=== PATIENT | male | born 1950 | race Caucasian/White ===

== ENCOUNTER 2023-05-23 12:56 | Outpatient (OUT) | payer MEDICARE, SELFPAY ==
--- NOTE | 2023-05-23 13:17 | XR_ITS ---
The [address] [address] Patient Name: BOBBY LITTLE MRN: [id number] date: 1950 Sex: M Assigned Patient Location: LAB Current Patient Location: Accession/Order Number: [id number] Exam Date: 05/23/2023 13:20 Report Date: 05/24/2023 07:35 At the request of: QUIN SOUTH Procedure: XR abdomen 1V EXAMINATION: XR abdomen 1V HISTORY: Kidney Stone N20.0 COMPARISON: No relevant comparison available. FINDINGS: KIDNEY/URETER - RIGHT: No visible renal or ureteral calcifications. KIDNEY/URETER - LEFT: No visible renal or ureteral calcifications. PELVIS: No visible ureteral calcifications. Any visible calcifications favor phleboliths. BOWEL: No abnormal dilation or deviation. BONES: No acute abnormality. OTHER: Negative. No abnormal gaseous collections. XR/XR abdomen 1V IMPRESSION: No definite urinary tract calculi Electronically authenticated by: LEONID PASCUAL Date: 05/24/2023 07:35
[2023-05-23 16:18] LABS: Prostate Specific Antigen Dx 1.85 ng/mL (<=4.00)
== END 2023-05-23 12:57 | disposition home or self-care (01) ==
LOC: LAB 13:00
PROVIDERS: PCP Internal Medicine; Visit Provider Urology
DX: N40.0 Benign prostatic hyperplasia without lower urinary tract symptoms (principal); N20.0 Calculus of kidney
CPT/HCPCS: 36415; 74018; 84153

== ENCOUNTER 2024-07-14 04:09 | Emergency (ER) | payer MEDICARE, SELFPAY ==
[2024-07-14 04:21] VITALS: BP 165/95; PULSE 99; TEMP 36.9; O2SAT 99; BMI 28.1
--- NOTE | 2024-07-14 04:40 | ED.GENADUL1 ---
HPI HPI - General Adult General Chief complaint: Fever Stated complaint: chills muscles ache Time Seen by Provider: 07/14/24 04:25 Source: patient Mode of arrival: walk-in Limitations: no limitations History of Present Illness HPI narrative: patient presents complaining of gen. weakness, chills and body aches. No fever or cough. No abdominal pain or nausea. illness started this past Related Data Allergies Allergy/AdvReac Type Severity Reaction Status Date / Time dapagliflozin [From Farxiga] Allergy Unknown Unknown Verified 07/14/24 04:21 methacholine Allergy Unknown Unknown Verified 07/14/24 04:24 [From Provocholine] Opioid HPI Opioid Management Most Recent Opioid Data: No Data to Display Review of Systems ROS Status of ROS 10 or more systems reviewed and unremarkable except as noted in history and below Exam Constitutional Vital Signs, click to edit/add: Last Vital Signs Temp 98.5 F 07/14/24 04:21 Pulse 99 H 07/14/24 04:21 Resp 18 07/14/24 04:21 BP 165/95 H 07/14/24 04:21 Pulse Ox 99 07/14/24 04:21 O2 Del Method Room Air 07/14/24 04:21 Common normals: no apparent distress, average body habitus, oriented x3, no limitations, healthy appearing and alert [facility] Common normals: normocephalic and head/scalp atraumatic Eye Common normals: PERRL and EOMs intact bilaterally Respiratory Common normals: normal respiratory effort, no retractions, no use of accessory muscles and clear to auscultation bilaterally Cardio Common normals: regular rate, regular rhythm, S1 normal heart sound and S2 normal heart sound GI Common normals: Normal to inspection, nondistended, normoactive bowel sounds present, soft to palpation and non-tender Extremity Common normals: normal to inspection and full ROM Neuro Common normals: oriented x3, CN's II-XII intact bilaterally, moves all extremities and no focal motor deficits Psych Appearance: grossly normal Course Vital Signs Vital signs: Vital Signs Temperature 98.5 F 07/14/24 04:21 Pulse Rate 99 H 07/14/24 04:21 Respiratory Rate 18 07/14/24 04:21 Blood Pressure 165/95 H 07/14/24 04:21 Pulse Oximetry 99 07/14/24 04:21 Oxygen Delivery Method Room Air 07/14/24 04:21 Temperature 98.5 F 07/14/24 04:21 Pulse Rate 99 H 07/14/24 04:21 Respiratory Rate 18 07/14/24 04:21 Blood Pressure 165/95 H 07/14/24 04:21 Pulse Oximetry 99 07/14/24 04:21 Oxygen Delivery Method Room Air 07/14/24 04:21 Medical Decision Making MDM Narrative Medical decision making narrative: patient is diabetic. presents feeling ill for past 4 days. Describes chills and body aches. No fever. Gen. sensation of weakness. No energy. Influenza and COVID 19 neg. Cxray clear. remaining labs within normal limits. Patient and informed of working diagnosis of viral illness and discharged home Lab Data Labs: Lab Results 07/14/24 07/14/24 07/14/24 Range/Units 04:25 05:10 05:18 WBC 11.8 H (4.0-11.0) 10^3/uL RBC 4.25 L (4.70-6.10) 10^6/uL Hgb 12.4 L (14.0-18.0) g/dL Hct 36.6 L (42.0-54.0) % MCV 86.1 (80.0-94.0) fL MCH 29.2 (25.9-34.0) pg MCHC 33.9 (29.9-35.2) g/dL RDW 12.9 (11.0-15.0) % Plt Count 240 (150-450) 10^3/uL MPV 10.9 (9.5-13.5) fL Neut % (Auto) 79.0 H (43.0-75.0) % Lymph % (Auto) 7.6 L (20.5-60.0) % Williams % (Auto) 12.1 H (1.7-12.0) % Eos % (Auto) 0.8 L (0.9-7.0) % Baso % (Auto) 0.2 (0.2-2.0) % Neut # (Auto) 9.3 H (1.4-6.5) 10^3/uL Lymph # (Auto) 0.9 L (1.2-3.8) 10^3/uL Williams # (Auto) 1.4 H (0.3-0.8) 10^3/uL Eos # (Auto) 0.1 (0.0-0.7) 10^3/uL Baso # (Auto) 0.0 (0.0-0.1) 10^3/uL Abs Immat Gran (auto) 0.04 H (0.00-0.03) 10^3/uL Imm/Tot Granulo (auto) 0.3 (0.0-0.5) % Sodium 133 L (136-145) mmol/L Potassium 4.0 (3.5-5.1) mmol/L Chloride 98 (98-107) mmol/L Carbon Dioxide 26.9 (21.0-32.0) mmol/L Anion Gap 12.1 BUN 11.0 (7.0-18.0) mg/dL Creatinine 1.01 (0.70-1.30) mg/dL Est GFR ( Amer) >60 (>=60) Est GFR (Non-Af Amer) >60 (>=60) BUN/Creatinine Ratio 10.9 Glucose 173 H (74-106) mg/dL Lactate 1.2 (0.4-2.0) mmol/L Calcium 8.9 (8.5-10.1) mg/dL Total Bilirubin 0.9 (0.2-1.0) mg/dL AST 24 (15-37) U/L ALT 33 (16-63) U/L Alkaline Phosphatase 83 (46-116) U/L Total Protein 7.1 (6.4-8.2) g/dL Albumin 3.1 L (3.4-5.0) g/dL Globulin 4.0 g/dL Albumin/Globulin Ratio 0.8 Urine Color Yellow (YELLOW) Urine Clarity Clear (CLEAR) Urine pH 6.0 (5.0-9.0) Ur Specific [place] 1.025 (1.005-1.025) Urine Protein 30 A (NEG/TRACE) mg/dL Urine Glucose (UA) Negative (NEGATIVE) mg/dL Urine Ketones Trace A (NEGATIVE) mg/dL Urine Occult Blood Negative (NEGATIVE) Urine Nitrite Negative (NEGATIVE) Urine Bilirubin Negative (NEGATIVE) Urine Urobilinogen 1.0 (0.2-1.0) EU/dL Ur Leukocyte Esterase Negative (NEGATIVE) Urine RBC 0-2 (0-2) #/HPF Urine WBC 0-2 A (NONE SEEN) #/HPF Ur Squamous Epith Cells Rare (NONE/RARE) #/LPF Urine Crystals None seen (None Seen) #/HPF Urine Bacteria None seen (NONE SEEN) #/HPF Urine Casts None seen (NONE SEEN) #/LPF Urine Mucus Moderate A (NONE SEEN) Ur Culture Indicated? No Influenza Type A Ag Negative Influenza Type B Ag Negative SARS-CoV-2 Ag (CV2AG) Negative (NEGATIVE) Discharge Plan Discharge Chief Complaint: Fever Clinical Impression: Viral infection Patient Disposition: Home, Self-Care Print Language: Egyptian Instructions: Viral Syndrome (ED) Additional Instructions: drink plenty of fluids and follow up with your doctor next week for recheck Referrals: SHELLIE VALLADARES DO [Primary Care Provider] - 1 week
--- NOTE | 2024-07-14 04:42 | XR_ITS ---
[address] [address] Patient Name: BOBBY LITTLE MRN: [id number] date: 1950 Sex: M Assigned Patient Location: ER Current Patient Location: ER Accession/Order Number: [id number] Exam Date: 07/14/2024 04:48 Report Date: 07/14/2024 05:27 At the request of: RINA DUBOIS Procedure: XR chest 1V EXAM: XR chest 1V HISTORY: gen. weakness COMPARISON: None. TECHNIQUE: AP upright portable chest x-ray. FINDINGS: The heart is mildly enlarged. The mediastinal contour and pulmonary vascularity are within normal limits. Aortic arch calcifications are noted. The lungs and pleural spaces appear clear. The bony thorax appears intact. XR/XR chest 1V IMPRESSION: Nonacute chest. Electronically authenticated by: DAVID BEDOYA Date: 07/14/2024 05:27
[2024-07-14 04:46] LABS: Influenza Virus A Antigen Negative; Influenza Virus B Antigen Negative; Internal Control Within Normal Limits; SARS-CoV-2 Ag NEGATIVE (NEGATIVE)
[2024-07-14 05:18] LABS: Basophils Percent Auto 0.2 % (0.2-2.0); Eosinophils Absolute Auto 0.1 10^3/uL (0.0-0.7); Eosinophils Percent Auto 0.8 % (0.9-7.0); Hematocrit 36.6 % (42.0-54.0); Hemoglobin 12.4 g/dL (14.0-18.0); Immature Granulocytes Abs Auto 0.04 10^3/uL (0.00-0.03); Immature Granulocytes Pct Auto 0.3 % (0.0-0.5); Lymphocytes Absolute Auto 0.9 10^3/uL (1.2-3.8); Lymphocytes Percent Auto 7.6 % (20.5-60.0); Mean Corpuscular HGB Conc 33.9 g/dL (29.9-35.2); Mean Corpuscular Hemoglobin 29.2 pg (25.9-34.0); Mean Corpuscular Volume 86.1 fL (80.0-94.0); Mean Platelet Volume 10.9 fL (9.5-13.5); Monocytes Absolute Auto 1.4 10^3/uL (0.3-0.8); Monocytes Percent Auto 12.1 % (1.7-12.0); Neutrophils Absolute Auto 9.3 10^3/uL (1.4-6.5); Platelet Count 240 10^3/uL (150-450); Red Blood Count 4.25 10^6/uL (4.70-6.10); Red Cell Distribution Width 12.9 % (11.0-15.0); White Blood Count 11.8 10^3/uL (4.0-11.0)
[2024-07-14 05:34] LABS: Alanine Aminotransferase 33 U/L (16-63); Albumin Globulin Ratio 0.8; Albumin Level 3.1 g/dL (3.4-5.0); Alkaline Phosphatase 83 U/L (46-116); Anion Gap 12.1; Aspartate Amino Transferase 24 U/L (15-37); BUN Creatinine Ratio 10.9; Bilirubin Total 0.9 mg/dL (0.2-1.0); Calcium 8.9 mg/dL (8.5-10.1); Carbon Dioxide 26.9 mmol/L (21.0-32.0); Chloride 98 mmol/L (98-107); Estimated GFR (African America >60 (>=60); Estimated GFR (Non-African Ame >60 (>=60); Glucose 173 mg/dL (74-106); Sodium 133 mmol/L (136-145); Total Protein 7.1 g/dL (6.4-8.2)
[2024-07-14 05:36] LABS: Lactate/Lactic Acid 1.2 mmol/L (0.4-2.0)
[2024-07-14 05:51] LABS: Bilirubin Urine NEGATIVE (NEGATIVE); Blood Urine NEGATIVE (NEGATIVE); Clarity Urine CLEAR (CLEAR); Color Urine YELLOW (YELLOW); Glucose Urine UA NEGATIVE (NEGATIVE); Ketones Urine TRACE mg/dL (NEGATIVE); Leukocyte Esterase Urine NEGATIVE (NEGATIVE); Nitrite Urine NEGATIVE (NEGATIVE); Protein Urine 30 mg/dL (NEG/TRACE); Specific Gravity Urine 1.025 (1.005-1.025)
[2024-07-14 05:56] LABS: Urine Microscopic Indicated YES
[2024-07-14 05:59] LABS: Bacteria Urine NONE SEEN #/HPF (NONE SEEN); RBC Urine 0-2 #/HPF (0-2); WBC Urine 0-2 #/HPF (NONE SEEN)
[2024-07-14 06:00] LABS: Cast Seen? NONE SEEN #/LPF (NONE SEEN); Crystals Seen? None Seen #/HPF (None Seen); Mucus Urine MODERATE (NONE SEEN); Squamous Epithelial Cell Urine RARE #/LPF (NONE/RARE); Urine Culture Indicated NO
== END 2024-07-14 06:26 | disposition home or self-care (01) ==
PROVIDERS: Emergency Provider Internal Medicine; PCP Internal Medicine
DX: B34.9 Viral infection, unspecified (principal); E11.9 Type 2 diabetes mellitus without complications; Z20.822 Contact with and (suspected) exposure to COVID-19
CPT/HCPCS: 36415; 71045; 80053; 81001; 83605; 85025; 87804; 87811; 99284

== ENCOUNTER 2024-10-25 12:41 | Outpatient (OUT) | payer MEDICARE, SELFPAY ==
--- NOTE | 2024-10-25 12:53 | CT_ITS ---
The [address] [address] Patient Name: BOBBY LITTLE MRN: [id number] date: 1950 Sex: M Assigned Patient Location: LAB Current Patient Location: Accession/Order Number: [id number] Exam Date: 10/25/2024 12:58 Report Date: 10/26/2024 06:07 At the request of: ZELALEM LAUGHLIN Procedure: CT chest high res EXAMINATION: CT chest high res HISTORY: Chronic Cough COMPARISON: No relevant comparison available. TECHNIQUE: Axial images were obtained at 10 mm intervals during inspiration and expiration in the supine and prone positions. No IV contrast given. Dose reduction techniques were achieved by using automated exposure control and/or adjustment of mA and/or kV according to patient size and/or use of iterative reconstruction technique. FINDINGS: LUNGS: A couple tiny granulomas. No air trapping, significant chronic interstitial changes, emphysematous changes, or scarring. PLEURA: No mass, effusion, or pneumothorax. NAIMA: No mass or adenopathy. MEDIASTINUM: No mass or adenopathy. HEART: No significant enlargement or pericardial effusion.. Coronary arteries: Heavy AORTA: No aneurysm.. CHEST WALL: No mass or axillary adenopathy LIMITED ABDOMEN: Chronic right hepatic lobe cyst and left renal cyst favoring benign etiology. Limited images of the upper abdomen. OTHER: Negative. CT/CT chest high res IMPRESSION: 1. No acute infiltrates or significant chronic interstitial changes to account for patient's symptoms. 2. Marked atherosclerotic coronary artery disease. Electronically authenticated by: TARIQ REYES Date: 10/26/2024 06:07
[2024-10-25 12:55] LABS: Basophils Percent Auto 0.4 % (0.2-2.0); Eosinophils Absolute Auto 0.6 10^3/uL (0.0-0.7); Eosinophils Percent Auto 8.2 % (0.9-7.0); Hematocrit 34.6 % (42.0-54.0); Hemoglobin 10.7 g/dL (14.0-18.0); Immature Granulocytes Abs Auto 0.01 10^3/uL (0.00-0.03); Immature Granulocytes Pct Auto 0.1 % (0.0-0.5); Lymphocytes Absolute Auto 1.8 10^3/uL (1.2-3.8); Lymphocytes Percent Auto 25.2 % (20.5-60.0); Mean Corpuscular HGB Conc 30.9 g/dL (29.9-35.2); Mean Corpuscular Hemoglobin 27.2 pg (25.9-34.0); Mean Corpuscular Volume 87.8 fL (80.0-94.0); Mean Platelet Volume 10.1 fL (9.5-13.5); Monocytes Absolute Auto 0.6 10^3/uL (0.3-0.8); Monocytes Percent Auto 8.7 % (1.7-12.0); Neutrophils Absolute Auto 4.1 10^3/uL (1.4-6.5); Neutrophils Percent Auto 57.4 % (43.0-75.0); Platelet Count 295 10^3/uL (150-450); Red Blood Count 3.94 10^6/uL (4.70-6.10); Red Cell Distribution Width 15.9 % (11.0-15.0); White Blood Count 7.1 10^3/uL (4.0-11.0)
--- OUTSIDE RECORDS SUMMARY | 2024-10-25 12:56 | XMS_ITS | CCD ---
Author Organization [facility] Care Team Providers Care Qm Nurse Name Role Phone NATAN HARTMAN Unavailable NATAN Anna Unavailable UnavailNATAN Farley. Unavailable Unavailable JACQUELYN, DR HENSLEY Primary Care Unavailable BRANNON, DR CHUCHO Goode Consulting Unavailable BRANNON, DR CHUCHO Goode Attending Unavailable BRANNON, DR CHUCHO Goode Admitting Unavailable NATAN VALLADARES JR Primary Care Physician [phone] Natan Valladares DO Primary Care Provider Natan Ho MD Unavailable Chucho SOUTH Attending Unavailable Chucho SOUTH Attending Unavailable Chucho SOUTH Attending Unavailable KENNY ONEIL Attending Unavailable KENNY ONEIL Referring Unavailable TARIQ MCCRACKEN Attending Unavailable CHUCHO SOUTH Referring Unavailable KENNY ONEIL Attending Unavailable KENNY ONEIL Referring Unavailable NATAN HO Attending Unavail able NATAN VALLADARES Primary Care Unavailable Allergies Allergy Classification Reported Allergen(s) Allergy Type Date of Onset Reaction(s) Facility (1 source) Pravastatin Drug Allergy 4 [facility] Repository (6 sources) Pravastatin; Translations: [pravastatin] Drug Allergy 4 Unknown [facility] (2 sources) beta-Blocking agent; Translations: [BETA-BLOCKERS (BETA-ADRENERGI C BLOCKING AGTS)] Propensity to adverse reactions 4 Unknown [facility] (2 sources) dapagliflozin; Translations: [DAPAGLIFLOZIN PROPANEDIOL] Drug Allergy 4 Other [facility] (2 sources) dapagliflozin; Translations: [dapagliflozin] Drug Allergy Eruption of skin (disorder) [facility] Medications Current Medications Medication Drug Class(es) Dates Sig (Normalized) Sig (Original) aspirin 81 mg delayed release oral tablet (4 sources) Platelet Aggregation Inhibitor, Nonsteroidal Anti-inflammatory Drug Start: 02-17-2022 take 1 tablet by mouth once daily aspirin 81 mg EC tablet Take 1 tablet (81 mg) by mouth once daily. 02/17/2022 Active Start: 08-28-2014 take 81 mg by mouth once daily aspirin 81 mg, Oral, Daily, Prophylaxis Start Date: 08/28/14 Status: Ordered atorvastatin 20 mg oral tablet (5 sources) HMG-CoA Reductase Inhibitor Start: 08-28-2014 take 20 mg by mouth once daily at bedtime Lipitor 20 mg, Oral, Once a day (at bedtime), Refills(s) 0, High cholesterol Start Date: 08/28/14 Status: Ordered take 1 tablet by carla th once daily atorvastatin (Lipitor) 40 mg tablet Take 1 tablet (40 mg) by mouth once daily. Active End: 04-19-2024 take 1 tablet by mouth once daily at bedtime atorvastatin calcium (LIPITOR ORAL) Take 1 tablet by mouth once daily at bedtime. 04/19/2024 Discontinued (Med List Cleanup) Centrum Silver (3 sources) Start: 08-28-2014 Centrum Silver Oral, Daily, Prophylaxis Start Date: 08/28/14 Status: Ordered clopidogrel 75 mg oral tablet (4 sources) P2Y12 Platelet Inhibitor Start: 08-28-2014 take 75 mg by mouth once daily Plavix 75 mg, Oral, Daily Start Date: 08/28/14 Status: Ordered docosahexaenoic acid 120 mg / eicosapentaenoic acid 180 mg oral capsule (1 source) Start: 02-17-2022 fish oil concentrate (Safford-3) 120-180 mg capsule Take 2 capsules (2 g) by mouth. (1000 MG capsule) 02/17/2022 Active doxycycline monohydrate 100 mg oral tablet (1 source) Tetracycline-class Drug Start: 06-04-2024 doxycycline monohydrate 100 mg oral tablet 100 mg = 1 tab(s), Oral Start Date: 06/04/24 Status: Ordered Fish Oils (3 sources) Start: 08-28-2014 take 1200 mg by mouth twice daily Fish Oil 1,200 mg, Oral, BID, Prophylaxis Start Date: 08/28/14 Status: Ordered fluticasone propionate 0.05 mg/actuat metered dose nasal spray (1 source) Corticosteroid Start: 02-17-2022 fluticasone (Flonase Allergy Relief) 50 mcg/actuation nasal spray Administer into affected nostril(s). As directed 02/17/2022 Active Garlic preparation (4 sources) Non-Standardized Food Allergenic Extract Start: 08-28-2014 garlic 1000, Oral, qPM, Prophylaxis Start Date: 08/28/14 Status: Ordered garlic 1,000 mg capsule Take by mouth. Take as directed Active metFORMIN hydrochloride 1000 mg oral tablet (4 sources) Biguanide Start: 02-17-2022 take 1 tablet by mouth twice daily metFORMIN (Glucophage) 1,000 mg tablet Take 1 tablet (1,000 mg) by mouth 2 times a day. 02/17/2022 Active Start: 08-28-2014 take 500 mg by mouth twice jose ly metformin 500 mg, Oral, BID, Blood glucose Start Date: 08/28/14 Status: Ordered montelukast 10 mg oral tablet (4 sources) Leukotriene Receptor Antagonist Start: 08-28-2014 take 10 mg by mouth once daily in the evening Singulair 10 mg, Oral, qPM, Allergy symptoms Start Date: 08/28/14 Status: Ordered nitroglycerin 0.4 mg sublingual tablet (1 source) Nitrate Vasodilator Start: 02-17-2022 nitroglycerin (Nitrostat) 0.[address] 1 tablet (0.4 mg) under the tongue every 5 minutes if needed for chest pain. 02/17/2022 Active pioglitazone 15 mg oral tablet (3 sources) Peroxisome Proliferator Receptor alpha Agonist, Peroxisome Proliferator Receptor gamma Agonist, Thiazolidinedione Start: 05-14-2021 take 1 mg by mouth once daily Actos 15 mg Tab mg tab(s), Oral, Daily, Refills(s) 0 Start Date: 05/14/21 Status: Ordered End: 04-19-2024 take 0.5 tablet by mouth once daily pioglitazone HCl (ACTOS ORAL) Take 15 mg by mouth. TAKE 1/2 TABLET once DAILY 04/19/2024 Discontinued (Med List Cleanup) ramipril 10 mg oral capsule (3 sources) Angiotensin Converting Enzyme Inhibitor Start: 02-17-2022 End: 04-19-2024 take 1 capsule by mouth every twelve hours ramipril (Altace) 10 mg capsule Take 1 capsule (10 mg) by mouth every 12 hours. 02/17/2022 04/19/2024 Discontinued (Med List Cleanup) Start: 08-28-2014 take 10 mg by mouth twice veda y Altace 10 mg, Oral, BID, Refills(s) 0, High blood pressure Start Date: 08/28/14 Status: Ordered sacubitril 49 mg / valsartan 51 mg oral tablet (3 sources) Angiotensin 2 Receptor Melchor Start: 12-04-2023 take 1 tablet by mouth twice daily Entresto 49 mg-51 mg oral tablet tab(s), Oral, BID, Refill(s) 0 Start Date: 12/04/23 Status: Ordered take 1 tablet by mouth twice jose ly sacubitriL-valsartan (Entresto) 97-103 mg tablet Take 1 tablet by mouth 2 times a day. Active spironolactone 50 mg oral tablet (4 sources) Aldosterone Antagonist Start: 12-04-2023 take 1 tablet by mouth once daily spironolactone 50 mg Tab 50 mg = 1 tab(s), Oral, Daily, Refills(s) 0 Start Date: 12/04/23 Status: Ordered take 0.5 tablet by mouth once da raad spironolactone (Aldactone) 50 mg tablet Take 0.5 tablets (25 mg) by mouth once daily. Active vitamin b12 0.5 mg oral tablet (4 sources) Vitamin B12 Start: 02-17-2022 take 1 tablet by mouth once daily cyanocobalamin (Vitamin B-12) 500 mcg tablet Take 1 tablet (500 mcg) by mouth once daily. 02/17/2022 Active Start: 08-28-2014 Vitamin B12 50 0 microgram, Oral, Daily, Prophylaxis Start Date: 08/28/14 Status: Ordered Problems Active Problems Problem Classification Problem Date Documented Date Episodic/Chronic Calculus of urinary tract (13 sources) Calculus of kidney; Translations: [Kidney stone] Onset: 05-13-2022 Episodic Coronary atherosclerosis and other heart disease (16 sources) Coronary atherosclerosis; Translations: [Old myocardial infarction] Onset: 04-19-2024 09-05-2014 Chronic Comment on above: 1995 Coronary atherosclerosis and other heart disease (1 source) Coronary atherosclerosis and other heart disease Onset: 03-12-2018 Diabetes mellitus with complications (4 sources) Type 2 diabetes mellitus with peripheral angiopathy; Translations: [Type 2 diabetes mellitus with diabetic peripheral angiopathy without gangrene] Onset: 04-14-2023 04-19-2024 Chronic Diabetes mellitus without complication (4 sources) Diabetes mellitus; Translations: [Type 2 diabetes mellitus without complications] Onset: 05-18-2023 09-05-2014 Chronic Diabetes mellitus without complication (3 sources) Impaired glucose tolerance 08-28-2014 Episodic Diabetes mellitus without complication (1 source) Diabetes mellitus without complication Onset: 03-12-2018 Disorders of lipid metabolism (13 sources) Hypercholesterolemia; Translations: [Hyperlipidemia] Onset: 04-19-2024 05-14-2020 Chronic Essential hypertension (10 sources) Hypertensive disorder; Translations: [Essential hypertension] Onset: 05-18-2023 09-05-2014 Chronic Essential hypertension (1 source) Essential hypertension Onset: 03-12-2018 Genitourinary symptoms and ill-defined conditions (3 sources) Post-micturition incontinence 05-15-2020 Chronic Genitourinary symptoms and ill-defined conditions (3 sources) Increased frequency of urination 05-15-2020 Episodic Hyperplasia of prostate (11 sources) Benign prostatic hyperplasia without lower urinary tract symptoms; Translations: [Benign prostatic hypertrophy without outflow obstruction] Onset: 05-10-2022 Chronic Nonspecific chest pain (1 source) Chest pain; Translations: [Chest pain, unspecified] Onset: 04-19-2024 04-19-2024 Episodic Other diseases of veins and lymphatics (2 sources) Peripheral venous insufficiency; Translations: [Venous insufficiency (chronic) (peripheral)] Onset: 04-19-2024 04-19-2024 Episodic Other nutritional; endocrine; and metabolic disorders (5 sources) Body mass index 25-29 - overweight; Translations: [Overweight] Onset: 04-19-2024 05-15-2020 Episodic Other screening for suspected conditions (not mental disorders or infectious disease) (4 sources) Raised prostate specific antigen; Translations: [Elevated prostate specific antigen [PSA]] Onset: 12-04-2023 Episodic Residual codes; unclassified (3 sources) H/O: anticoagulant therapy 02-06-2020 Episodic Residual codes; unclassified (2 sources) Never smoked tobacco; Translations: [Other specified health status] Onset: 04-19-2024 04-19-2024 Episodic Unclassified (1 source) Overweight / E66.3(ICD-9) Onset: 03-12-2018 Unclassified (2 sources) Athscl heart disease of [place] [facility] / I25.119(ICD-9) Onset: 03-12-2018 Unclassified (1 source) intermediate (current) use of oral hypoglycemic drugs / Z79.84(ICD-9) Onset: 03-12-2018 Unclassified (1 source) Cardiomyopathy, unspecified / I42.9(ICD-9) Onset: 03-12-2018 Unclassified (1 source) Chest pain, unspecified / R07.9(ICD-9) Onset: 03-12-2018 Unclassified (1 source) Shortness of breath / R06.02(ICD-9) Onset: 03-12-2018 Unclassified (1 source) Coronary angioplasty status / Z98.61(ICD-9) Onset: 03-12-2018 Unclassified (1 source) buttermaker (current) use of antithrombotics/antip latelets / Z79.02(ICD-9) Onset: 03-12-2018 Unclassified (1 source) buttermaker (current) use of aspirin / Z79.82(ICD-9) Onset: 03-12-2018 Unclassified (1 source) Family hx of ischem heart dis and oth dis of the circ sys / Z82.49(ICD-9) Onset: 03-12-2018 Past or Other Problems Problem Classification Problem Date Documented Da te Episodic/Chronic Coronary atherosclerosis and other heart disease (2 sources) Coronary angioplasty status; Translations: [Coronary angioplasty status] Onset: 04-19-2024 Episodic Other diseases of veins and lymphatics (2 sources) Venous insufficiency (chronic) (peripheral); Translations: [Venous insufficiency (chronic) (peripheral)] Onset: 04-19-2024 Episodic Other nutritional; endocrine; and metabolic disorders (2 sources) Overweight; Translations: [Overweight] Onset: 04-19-2024 Episodic Residual codes; unclassified (2 sources) Other specified health status; Translations: [Other specified health status] Onset: 04-19-2024 Episodic Unclassified (1 source) Athscl heart disease of [place] [facility]; Translations: [Athscl heart disease of [place] cor art [facility] pct[facility]] Onset: 03-12-2018 Results Test Name Value Interpretation Reference Range Facil ity Ambulatory Visit Summaryon 0 06-04-2024 Ambulatory Visit Summary Ambulatory Visit Summary BOBBY LITTLE JR :1950 Visit Date:06/04/2024 Ambulatory Visit Instructions Your Diagnosis Elevated PSA Kidney stones BPH (benign prostatic hyperplasia) Your Care Team Attending Physician - Chucho SOUTH MD Primary Care Physician - NATAN VALLADARES JR, DO This Is Your Medications List Contact prescribing physician if questions or concerns Misc Prescription (Accu-Chek Softclix Lancets) aspirin atorvastatin (Lipitor) clopidogrel (Plavix) cyanocobalamin (Vitamin B12) doxycycline (doxycycline monohydrate 100 mg oral tablet) garlic metformin montelukast (Singulair) multivitamin with minerals (Centrum Silver) omega-3 polyunsaturated fatty acids (Fish Oil) sacubitril-valsartan (Entresto 49 mg-51 mg oral tablet) spironolactone (spironolactone 50 mg Tab) Procedures Performed Cystoscopy (07/20/2017), Cystoscopy (06/30/2017), cystoscopy, left ureteral stent removal, left ureteroscopy with Holmium laser ablataion, ureteroscopic stone basket extraction, left JJ stent replacement after RGP, all under fluoroscopy (09/08/2014), cystoscopy, left retrograde pyelogram, left ureteroscopy, left JJ stent placement (08/28/2014), Coronary angioplasty, Insertion of coronary artery stent. Discharge Vitals Heart Rate (Peripheral) 64 Respiratory Rate 16 Blood Pressure 128/64 Height 165 cm Height 65 in Weight 81 kg Weight 178.2 lb BMI 29.75 What to do next Scheduled Follow-Up Appointments Monday. 2024 9:30 AM EDT With: Chucho SOUTH MD Where: [facility] [address] [place] [address]- You Need to Schedule the Following Appointments Follow Up with Chucho SOUTH MD, URL When: Comments: 9 mos PSA Where: [address] [place] [id number]- Medications What How Much When Instructions Unchanged aspirin 81 Milligram By Mouth Every day Contact prescribing physician if questions or concerns Unchanged atorvastatin (Lipitor) 20 Milligram By Mouth Once a day (at bedtime) Contact prescribing physician if questions or concerns Unchanged clopidogrel (Plavix) 75 Milligram By Mouth Every day Contact prescribing physician if questions or concerns Unchanged cyanocobalamin (Vitamin B12) 500 Microgram By Mouth Every day Contact prescribing physician if questions or concerns Unchanged doxycycline (doxycycline monohydrate 100 mg oral tablet) 1 Tablets By Mouth Contact prescribing physician if questions or concerns Unchanged garlic 1000 By Mouth Once a day (in the evening) Contact prescribing physician if questions or concerns Unchanged metformin 500 Milligram By Mouth 2 times a day Contact prescribing physician if questions or concerns Unchanged Misc Prescription (Accu-Chek Softclix Lancets) 0 Contact prescribing physician if questions or concerns Unchanged montelukast (Singulair) 10 Milligram By Mouth Once a day (in the evening) Contact prescribing physician if questions or concerns Unchanged multivitamin with minerals (Centrum Silver) By Mouth Every day Contact prescribing physician if questions or concerns Unchanged omega-3 polyunsaturated fatty acids (Fish Oil) 1,200 Milligram By Mouth 2 times a day Contact prescribing physician if questions or concerns Unchanged sacubitril-valsartan (Entresto 49 mg-51 mg oral tablet) By Mouth 2 times a day Contact prescribing physician if questions or concerns Unchanged spironolactone (spironolactone 50 mg Tab) 1 Tablets By Mouth Every day Contact prescribing physician if questions or concerns Allergies Farxiga (Rash) Pravastatin Sodium Problems Ongoing - Any problem that you are currently receiving treatment for. 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 Healed myocardial infarction History of kidney stone Patient Survey You may receive a survey via text or e-mail asking about your office visit. Please share your experience with us by completing your survey. We appreciate your feedback and thank you for choosing us for your care. Education Materials Benign Prostatic Hyperplasia Benign prostatic hyperplasia (BPH) is an enlarged prostate gland that is caused by the normal aging process. The prostate may get bigger as a man gets older. The condition is not caused by cancer. The prostate is a walnut-sized gland that is involved in the production of semen. It is located in front of the rectum and below the bladder. The bladder stores urine. The urethra carries stored urine out of the body. An enlarged prostate can press on the urethra. This can (more content not included)... Normal [facility] Urology Office/Clinic Noteon 06-04-2024 Urology Office/Clinic Note Urology Office/Clinic Note Chief Complaint 6 month follow up HPI Staff 6 months w/ PSA and KUB. Dx: BPH, elevated PSA, kidney stones. PSA 05/27/24 - 1.12 (10/24/23 - 1.90) KUB done 05/27/24 at [facility]. Dysuria: denies pain or burning Incomplete bladder emptying: denies Hematuria: denies Frequency: denies Urgency: denies Nocturia: 1-2x a month Stream: denies hesitancy, denies Leaking: denies Post void dripping: denies Wearing pads/ Depends: denies Urge incontinence: denies Stress incontinence: denies Incontinence without Sensory Awareness: denies Abdominal pain: denies Flank pain: denies Sexual complaints: denies History of Present Illness Tests reviewed: reviewed UA, PSA, KUB I have reviewed the previous health record information and history for this patient from Dr. South. I have reviewed and verified the staff HPI to be accurate for this encounter. Review of Systems PHQ Score Initial Depression Screen Score: 0 SCORE ROS - Provider Constitutional: denies weight loss, denies hot flashes. Eyes: denies eye problems. Gastrointestinal: denies nausea, denies vomiting. Cardiovascular: denies chest pain or angina. Integumentary: no dryness Musculoskeletal: denies musculoskeletal symptoms. ENMT: denies otolaryngeal symptoms. Respiratory: no shortness of breath. Heme/Lymph: denies easy bleeding tendency, denies easy bruising tendency. Psychiatric: no confusion, no anxiety. Genitourinary: See HPI. Physical Exam Vitals & Measurements HR: 64(Peripheral) RR: 16 BP: 128/64 HT: 65 in HT: 165 cm WT: 81 kg WT: 178.2 lb BMI: 29.75 General Appearance: alert, no distress, well nourished, well developed male. Genitourinary: normal scrotum, normal testes, normal urethra, normal epididymis, normal vas deferens/spermatic cord. Prostate: normal prostate, estimated weight 35 gms, no hard nodule observed. Assessment/Plan Pt is accompanied by his today. 1. Elevated PSA (R97.20: Elevated prostate specific antigen [PSA]) PSA: 05/05/21 - 1.50 05/10/22 - 1.31 05/23/23 - 1.85 10/24/23 - 1.90 05/27/24 - 1.12 YUMIKO today ~35g, no nodules PSA has decreased from prior. Again educated the pt on the 5 etiologies of PSA risers but PSA is the lowest it has been since starting to see the pt. No indication for further evaluation. Will continue to monitor level. -Repeat PSA in 9 mos 2. Kidney stones (N20.0: Calculus of kidney) KUB 05/10/22 - Neg for stones. Personal review: Lots of gas, possible 2 mm R sided renal stone. KUB 05/23/23 - Neg for stones. [1] KUB 05/27/24 [facility] - no stones identified however view was obscured due to stool. Reviewed imaging results which was negative. Denies any stone passing since last encounter. 3. BPH (benign prostatic hyperplasia) (N40.0: Benign prostatic hyperplasia without lower urinary tract symptoms) IPSS 0 (2). Not currently taking any BPH meds. UA today negative for blood and infection. No urinary complaints. Patient is here with his today. They are happy to hear that the PSA has decreased significantly from 1.9 down to 1.12. Prior levels noted. This is the lowest he has been in some time. KUB is negative. Has had no stone passage. Denies gross hematuria. Urinalysis negative. Plan will be to increase the interval between visits now to 9 months with a repeat free and total PSA. Too early to recheck a KUB at that time but we will discuss it. They are in agreement with the plan. Push fluids. Portions of this record may have been created with voice recognition artificial intelligence software, specifically [employer], eflow and or [employer]. Substitutions may have occurred due to the inherent limitations of voice recognition and artificial intelligence software. Follow-up With When Contact Information Chucho SOUTH MD, URL [address] [place] [id number]- Additional Instructions: 9 mos PSA Patient Education Benign Prostatic Hyperplasia I, Asha [place], personally scribed for Dr. South on 06/04/2024 11:14:24. . Documentation recorded by the Asha champion acurately reflects the services(s) I performed and decisions made by me. Authenticated by Dr. South on 06/04/2024 11:16:08. Problem List/Past Medical History Ongoing BMI 29.0-29.9,adult BPH (benign prostatic hyperplasia) CAD (coronary artery disease) Diabetes Elevated PSA Frequent urination HTN - Hypertension Hx of usp use of blood thinners Hypercholesterolemia Hyperlipidemia Kidney stones Post-void dribbling Historical Healed myocardial infarction History of kidney stone Procedure/Surgical History Cystoscopy (07/20/2017), Cystoscopy (06/30/2017), cystoscopy, left ureteral stent removal, left ureteroscopy with Holmium laser ablataion, ureteroscopic stone basket extraction, left JJ stent replacement after RGP, all under fluo (more content not included)... Normal [facility] Comment on above: Result Comment: Elec tronically Signed By: Chucho SOUTH MD\.br\Date and Time Signed: 06/04/24 11:17 EDT\.br\Electronically Co-Signed By: Asha [place]\.br\Date and Time Co-Signed: 06/04/24 11:14 EDT XR ABDOMEN 1 VIEWon 05-27-20 24 XR ABDOMEN 1 VIEW FINDINGS: Renal shadows and the course of both ureters above the pelvic brim are obscured by moderate to large volume of stool throughout the colon. No distal ureteral or bladder stones are seen. Bowel gas pattern is otherwise unremarkable. IMPRESSION: Obscured renal shadows No ureteral or bladder stones TRANSCRIBED BY: ELECTRONICALLY SIGNED BY: Melvin Collier MD Normal Not Available [facility] 12-05-2023 Lab Reports [id number] .00TIFF [facility] Screenson 12-05-2023 Screens [id number]# 1.00TIFF [facility] Ambulatory Visit Summaryon 0 12-04-2023 Ambulatory Visit Summary BOBBY LITTLE JR :1950 Visit Date:12/04/2023 Ambulatory Visit Instructions Your Diagnosis BPH (benign prostatic hyperplasia) Elevated PSA Kidney stones Tests Performed XR Abdomen 1 View -- Results Pending -- Please visit your patient portal for your results or contact your primary care physician. Your Care Team Attending Physician - Chucho SOUTH MD Primary Care Physician - NATAN VALLADARES JR, DO This Is Your Medications List Contact prescribing physician if questions or concerns aspirin atorvastatin (Lipitor) clopidogrel (Plavix) cyanocobalamin (Vitamin B12) garlic metformin montelukast (Singulair) multivitamin with minerals (Centrum Silver) omega-3 polyunsaturated fatty acids (Fish Oil) pioglitazone (Actos 15 mg Tab) ramipril (Altace) sacubitril-valsartan (Entresto 49 mg-51 mg oral tablet) spironolactone (spironolactone 50 mg Tab) spironolactone (spironolactone 50 mg Tab) Procedures Performed Cystoscopy (07/20/2017), Cystoscopy (06/30/2017), cystoscopy, left ureteral stent removal, left ureteroscopy with Holmium laser ablataion, ureteroscopic stone basket extraction, left JJ stent replacement after RGP, all under fluoroscopy (09/08/2014), cystoscopy, left retrograde pyelogram, left ureteroscopy, left JJ stent placement (08/28/2014), Coronary angioplasty, Insertion of coronary artery stent. Discharge Vitals Blood Pressure 128/84 Height 165 cm Height 65 in Weight 85.3 kg Weight 187.66 lb BMI 31.33 What to do next Scheduled Follow-Up Appointments Monday 10:45 AM EDT With: Chucho SOUTH MD Where: [facility] Patient Educationon 12-04-19 24 Patient Education Nephrology Dietary Guidelines to Help Prevent Kidney Stones Kidney stones are deposits of minerals and salts that form inside your kidneys. Your risk of developing kidney stones may be greater depending on your diet, your lifestyle, the medicines you take, and whether you have certain medical conditions. Most people can lower their risks of developing kidney stones by following these dietary guidelines. Your dietitian may give you more specific instructions depending on your overall health and the type of kidney stones you tend to develop. What are tips for following this plan? Reading food labels ? Choose foods with no salt added or low-salt labels. Limit your salt (sodium) intake to less than 1,500 mg a day. ? Choose foods with calcium for each meal and snack. Try to eat about 300 mg of calcium at each meal. Foods that contain 200?500 mg of calcium a serving include: ? 8 oz (237 mL) of milk, calcium-fortifiednon- dairy milk, and calcium-fortifiedfrui t juice. Calcium-fortified means that calcium has been added to these drinks. ? 8 oz (237 mL) of kefir, yogurt, and soy yogurt. ? 4 oz (114 g) of tofu. ? 1 oz (28 g) of cheese. ? 1 cup (150 g) of dried figs. ? 1 cup (91 g) of cooked broccoli. ? One 3 oz (85 g) can of sardines or mackerel. Most people need 1,000?1,500 mg of calcium a day. Talk to your dietitian about how much calcium is recommended for you. Shopping ? Buy plenty of fresh fruits and vegetables. Most people do not need to avoid fruits and vegetables, even if these foods contain nutrients that may contribute to kidney stones. ? When shopping for convenience foods, choose: ? Whole pieces of fruit. ? Pre-made salads with dressing on the side. ? Low-fat fruit and yogurt smoothies. ? Avoid buying frozen meals or prepared deli foods. These can be high in sodium. ? Look for foods with live cultures, such as yogurt and kefir. ? Choose high-fiber grains, such as whole-wheat breads, oat bran, and wheat cereals. Cooking ? Do not add salt to food when cooking. Place a salt shaker on the table and allow each person to add their own salt to taste. ? Use vegetable protein, such as beans, textured vegetable protein (TVP), or tofu, instead of meat in pasta, casseroles, and soups. Meal planning ? Eat less salt, if told by your dietitian. To do this: ? Avoid eating processed or pre-made food. ? Avoid eating fast food. ? Eat less animal protein, including cheese, meat, poultry, or fish, if told by your dietitian. To do this: ? Limit the number of times you have meat, poultry, fish, or cheese each week. Eat a diet free of meat at least 2 days a week. ? Eat only one serving each day of meat, poultry, fish, or seafood. ? When you prepare animal proteins, cut pieces into small portion sizes. For most meat and fish, one serving is about the size of the palm of your hand. ? Eat at least five servings of fresh fruits and vegetables each day. To do this: ? Keep fruits and vegetables on hand for snacks. ? Eat one piece of fruit or a handful of berries with breakfast. ? Have a salad and fruit at lunch. ? Have two kinds of vegetables at dinner. ? You may be told to limit foods that are high in a substance called oxalate. These include: ? Spinach (cooked), rhubarb, beets, sweet potatoes, and [place]eg[place]e chard. ? Peanuts. ? Potato chips, tamazight fries, and baked potatoes with skin on. ? Nuts and nut products. ? Chocolate. ? If you regularly take a diuretic medicine, make sure to eat at least 1 or 2 servings of fruits or vegetables that are high in potassium each day. These include: ? Avocado. ? Banana. ? [place], prune, carrot, or tomato juice. ? Baked potato. ? Cabbage. ? Beans and split peas. Lifestyle ? Drink enough fluid to keep your urine pale yellow. This is the most important thing you can do. Spread your fluid intake throughout the day. ? If you drink alcohol: ? Limit how much you have to: ? 0?1 drink a day for women who are not . ? 0?2 drinks a day for men. ? Know how much alcohol is in your drink. In the [place] one drink equals one 12 oz bottle of beer (355 mL), one 5 oz glass of wine (148 mL), or one 1? oz glass of hard liquor (44 mL). ? Lose weight if told by your health care provider. Work with your dietitian to find an eating plan and weight loss strategies that work best for you. General information ? Talk to your health care provider and dietitian about taking daily supplements. Depending on your health and the cause of your kidney stones, you may be told: ? Do not take high-dose supplements of vitamin C (1,000 mg a day or more). ? To take a calcium supplement. ? To take a daily probiotic supplement. ? To take other supplements such as magnesium, fish oil, or vitamin B6. ? Take sqia-agx-tgnxmyq and prescription medicines only as told by your health care provider. These include supplements. What foods sh (more content not included)... Normal [facility] Urology Office/Clinic Noteon 12-04-2023 Urology Office/Clinic Note Chief Complaint F/U with PSA HPI Staff 6 month follow up w/PSA. previous PSA 1.85 05/23/23. Previous DX: BPH, frequent urination, kidney stones, post void dribbling. No urologic meds. IPSS 2 Dysuria: _denies Incomplete bladder emptying: denies Hematuria: denies visible blood Frequency: 3-4x daily Urgency: denies Nocturia: _denies Stream: a little hesitation, weaker stream Leaking: denies Post void dripping: denies Wearing pads/ Depends: denies Urge incontinence: denies Stress incontinence: denies Incontinence without Sensory Awareness: denies Abdominal pain: denies Flank pain: denies Sexual complaints: denies History of Present Illness Tests reviewed: reviewed UA and PSA. I have reviewed the previous health record information and history for this patient from . I have reviewed and verified the staff HPI to be accurate for this encounter. There have been no associated fever, chills, flank pain, or blood in the urine. Denies any urinary infections since last encounter. Review of Systems PHQ Score Initial Depression Screen Score: 0 SCORE ROS - Provider Constitutional: denies weight loss, denies hot flashes. Eyes: denies eye problems. Gastrointestinal: denies nausea, denies vomiting. Cardiovascular: denies chest pain or angina. Integumentary: no dryness Musculoskeletal: denies musculoskeletal symptoms. ENMT: denies otolaryngeal symptoms. Respiratory: no shortness of breath. Heme/Lymph: denies easy bleeding tendency, denies easy bruising tendency. Psychiatric: no confusion, no anxiety. Genitourinary: See HPI. Physical Exam Vitals & Measurements BP: 128/84 HT: 65 in HT: 165 cm WT: 85.3 kg WT: 187.66 lb BMI: 31.33 General Appearance: alert, no distress, well nourished, well developed male. Assessment/Plan 1. BPH (benign prostatic hyperplasia) (N40.0: Benign prostatic hyperplasia without lower urinary tract symptoms) UA today negative for blood and infection. Not taking any prostate meds. IPSS 2(0). No urinary complaints. YUMIKO 05/30/23: 35 gm, soft nodularity on the R. R lobe slightly higher. 2. Elevated PSA (R97.20: Elevated prostate specific antigen [PSA]) PSA: 05/05/21 - 1.50 05/10/22 - 1.31 05/23/23 - 1.85 10/24/23 - 1.90 Increased 0.1 point in 1 yr. Hx of fluctuating PSA. Discussed getting another level in 6 mos vs 1 yr to watch PSA a little more closely given recent elevation. Follow up 6 mos PSA and KUB or sooner if needed. Pt understands and agrees with plan. -Will order PSA. 3. Kidney stones (N20.0: Calculus of kidney) KUB 05/10/22 - Neg for stones. Personal review: Lots of gas, possible 2 mm R sided renal stone. KUB 05/23/23 - Neg for stones. -KUB in 6 mos. Patient is here with his today. PSA levels are as noted. Had gone up about 0.5 and remained stable at that level currently. I do not feel this justifies further evaluation with an MRI which could lead to a fusion biopsy at this point but do recommend continued close follow-up. He agrees with the plan. Will repeat both free and total PSA and KUB prior to next visit. Urinalysis reviewed and negative. They agree with the plan Follow-up With When Contact Information BRANNON DAVIS, Chucho Goode, URL In 6 months [address] [place] [phone] Additional Instructions: w/PSA and KUB Patient Education Dietary Guidelines to Help Prevent Kidney Stones I, Martha Hawkins, personally scribed for Dr. South on 12/04/2023 11:32:42. . Documentation recorded by the scribe, Martha Hawkins, accurately reflects the services(s) I performed and decisions made by me. Authenticated by Dr. South on 12/04/2023 11:56:11. Portions of this record may have been created with voice recognition artificial intelligence software, specifically [employer], eflow and or [employer]. Substitutions may have occurred due to the inherent limitations of voice recognition and artificial intelligence software. Problem List/Past Medical History Ongoing BMI 29.0-29.9,adult BPH (benign prostatic hyperplasia) CAD (coronary artery disease) Diabetes Elevated PSA Frequent urination HTN - Hypertension Hx of usp use of blood thinners Hypercholesterolemia Hyperlipidemia Kidney stones Post-void dribbling Historical Healed myocardial infarction History of kidney stone Procedure/Surgical History Cystoscopy (07/20/2017), Cystoscopy (06/30/2017), cystoscopy, left ureteral stent removal, left ureteroscopy with Holmium laser ablataion, ureteroscopic stone basket extraction, left JJ stent replacement after RGP, all under fluoroscopy (09/08/2014), cystoscopy, left retrograde pyelogram, left ureteroscopy, left JJ stent placement (08/28/2014), Coronary angioplasty, Insertion of coronary artery stent. Medications Actos 15 mg Tab, Oral, Daily, Not taking Altace, 10 mg, Oral, BID, No (more content not included)... Normal [facility] Comment on above: Result Comment: Elec tronically Signed By: Chucho SOUTH MD\.br\Date and Time Signed: 12/04/23 11:56 EST\.br\Electronically Co-Signed By: Martha Hawkins\.br\Date and Time Co-Signed: 12/04/23 11:32 EST XR Abdomen Single View (KUB) *on 05-10-2022 XR Abdomen Single View (KUB)* FINDINGS: Moderate volume of air and stool throughout the abdomen and pelvis obscures both renal shadows and course of the ureters. No biliary or urinary tract stones. 2mm calcification neighbors the right L1 transverse process unlikely within the urinary tract. No evidence of bowel obstruction or free air. Unremarkable lung bases. IMPRESSION: 1. Moderate volume of stool, no obstruction. 2. Obscured renal shadows. Report reported and signed by Melvin Collier on 05/10/2022 1025 Normal [facility] Office Visit (Cardiology)on 04-15-2022 Follow-up visit Diagnoses/Problems Assessed CAD S/P percutaneous coronary angioplasty (414.01,V45.82) (I25.10,Z98.61) Diabetes mellitus (250.00) (E11.9) Mixed hyperlipidemia (272.2) (E78.2) Overweight with body mass index (BMI) of 28 to 28.9 in adult (278.02,V85.24) (E66.3,Z68.28) Orders Overweight with body mass index (BMI) of 28 to 28.9 in adult Healthy Weight Tips; Status:Complete - Retrospective Authorization; Done: 15Apr2022 Losing just 5 to 10 pounds may lower your risk of health problems.; Status:Complete - Retrospective Authorization; Done: 15Apr2022 Patient Instructions By signing my name below, I, Daily Jhaveri LPN,Scribe, attest that this documentation has been prepared under the direction and in the presence of Dr. Natan Ho MD, [facility]. Continue same medications/treatment . Patient educated on proper medication use. Patient educated on risk factor modification. Please bring any lab results from other providers/physicians to your next appointment. Please bring all medicines, vitamins, and herbal supplements with you when you come to the office. Prescriptions will not be filled unless you are compliant with your follow up appointments or have a follow up appointment scheduled as per instruction of your physician. Refills should be requested at the time of your visit. Follow up in 1 year Chief Complaint Patient here for 1 year follow-up. History of Present Illness The patient states she has been doing well from a cardiac standpoint. He denies chest discomfort or symptoms of myocardial ischemia. He has not taken nitroglycerin. He denies any significant dyspnea with exertion. He denies palpitations and syncope. He is not having any problem with his medications. Lab data: Hemoglobin 13.9, cholesterol 121, triglycerides 97, HDL 41 GFR 92, hemoglobin A1c 6.8, done 01/13/2022, results discussed with patient LDL 62 IMPRESSION: 1. Coronary artery disease, no angina. 2. Multivessel PCI, most recently drug-eluting stents of left anterior descending coronary and right coronary artery, March 12, 2018. 3. Mixed hyperlipidemia. 4. Diabetes mellitus type 2. 5. Overweight. Please excuse any errors in grammar or translation related to this dictation. Voice recognition software was utilized to prepare this document. Active Problems Problems CAD S/P percutaneous coronary angioplasty (414.01,V45.82) (I25.10,Z98.61) Chest pain (786.50) (R07.9) Diabetes mellitus (250.00) (E11.9) History of angina, class III (V12.59) (Z86.79) Mixed hyperlipidemia (272.2) (E78.2) Shortness of breath (786.05) (R06.02) Surgical History Problems History of Cardiac catheterization History of Colonoscopy 06Nov2010 Dr Natan Valladares History of Cyst excision History of Percutaneous transluminal coronary angioplasty History of Renal lithotripsy Current Meds Medication NameInstruction Actos 15 MG Oral TabletTAKE 1/2 TABLET once DAILY. Altace 10 MG Oral CapsuleTAKE 1 CAPSULE EVERY 12 HOURS DAILY. Aspirin 81 MG Oral Tablet Delayed ReleaseTAKE 1 TABLET DAILY. Centrum Silver Oral TabletTAKE 1 TABLET DAILY. Clopidogrel Bisulfate 75 MG Oral TabletTAKE 1 TABLET DAILY. Fish Oil 1000 MG Oral CapsuleTake 2 capsules twice daily Flonase Allergy Relief 50 MCG/ACT Nasal Suspensionas directed Garlic 1000 MG Oral CapsuleTAKE DIRECTED. Lipitor 20 MG Oral TabletTAKE 1 TABLET AT BEDTIME. metFORMIN HCl - 1000 MG Oral TabletTAKE 1 TABLET TWICE DAILY. Nitroglycerin 0.4 MG Sublingual Tablet SublingualTAKE DIRECTED FOR CHEST PAIN/DISCOMFORT Singulair 10 MG Oral TabletTAKE 1 TABLET DAILY DIRECTED. Vitamin B-12 500 MCG Oral TabletTAKE 1 TABLET DAILY. Allergies Medication Beta Adrenergic Blockers Bradycardia;; Recorded By: Ester Arambula; 02/14/2022 9:47:52 PM pravastatin Recorded By: Ester Arambula; 02/14/2022 9:47:52 PM Family History Mother Family history of acute myocardial infarction (V17.3) (Z82.49) Family history of coronary artery disease (V17.3) (Z82.49) Father Family history of cardiac pacemaker (V17.49) (Z82.49) Brother Family history of cardiac pacemaker (V17.49) (Z82.49) Social History Problems Never a smoker No alcohol use No illicit drug use Occasional caffeine consumption 1 can a month Review of Systems Constitutional: not feeling tired. Cardiovascular: no intermittent leg claudication and as noted in HPI. Respiratory: no cough, no shortness of breath and as noted in HPI. Gastrointestinal: no change in bowel habits and no blood in stools. Integumentary: no skin rashes. Neurological: no seizures and no frequent falls. All other systems have been reviewed and are negative for complaint. Vitals Vital Signs Recorded: 15Apr2022 09:22AM Heart Rate60, L Radial Xckmgtlq455, LUE, Sitting Oianaaibk38, LUE, Sitting Height5 ft 5 in Ebxnho226 lb 8.0 oz BMI Pwhzhtrlmb24.87 kg/m2 BSA Calculated1.86 Tobacco Useb) No PHQ-2 #1. Over the last 2 weeks have (more content not included)... Normal [employer] Basic Metabolic Panelon 05-0 Anion gap 9 mmol/L Low 10-[address] [facility] Healthcare Comment on above: Performed By: #### 1 [id number] ####[facility] [address] [place] [address] Bicarbonate (HCO3) 28 mmol/L Normal 21-32 [facility] Comment on above: Performed By: #### 1 [id number] ####[facility] [address] [place] [address] BUN/Creatinine Ratio 14 mg/mg Normal 5-25 [facility] Comment on above: Performed By: #### 1 [id number] ####[facility] [address] [place] [address] Calcium 9.2 mg/dL Normal 8.6-10.3 [facility] Comment on above: Performed By: #### 1 [id number] ####[facility] [address] [place] [address] Chloride 106 mmol/L Normal 98-[address] [facility] Healthcare Comment on above: Performed By: #### 1 [id number] ####[facility] [address] [place] [address] Creatinine 0.93 mg/dL Normal 0.50-1.30 [facility] Comment on above: Performed By: #### 1 [id number] ####[facility] [address] [place] [address] eGFR (MDRD) mL/min/{1.73_m2} Normal [facility] Comment on above: Result Comment: Inte rpretation for Chronic Kidney Disease:Stages 1&2 >60 Healthy or potential kidney damage.Mild decrease of GFR.Stage 3 30-59 Moderate decrease of GFR.Stage 4 15-29 Severe decrease of GFR.Stage 5 <15 Kidney failure or on dialysis. Performed By: #### 1 [id number] ####[facility] [address] [place] [address] Glucose mass conc 118 mg/dL High 70-100 [facility] Comment on above: Performed By: #### 1 [id number] ####[facility] [address] [place] [address] Potassium molar conc 4.1 mmol/L Normal 3.5-5.1 [facility] Comment on above: Performed By: #### 1 [id number] ####[facility] [address] [place] [address] Sodium 139 mmol/L Normal 136-145 [facility] Comment on above: Performed By: #### 1 [id number] ####[facility] [address] [place] [address] Urea nitrogen 13 mg/dL Normal 6-23 [facility] are Comment on above: Performed By: #### 1 [id number] ####[facility] [address] [place] [address] Activated Clotting Time Low Rangeon 03-12-2018 Activated Clotting Time Low Range >400 Normal [facility] Comment on above: Result Comment: Norm al: 96-167 Secs(Unheparinized)Stent Implant Range: >300 SecsSheath Removal: 150-170 SecsCRRT: 180-220 Secs(Continous Renal Replacement Therapy) Performed By: #### A CTLR ####[facility] [address] [place] [address] Basic Metabolic Panelon 05-0 Anion gap 12 mmol/L Normal 10-20 [facility] Comment on above: Performed By: #### 1 [id number] ####[facility] [address] [place] [address] Bicarbonate (HCO3) 27 mmol/L Normal 21-32 [facility] Comment on above: Performed By: #### 1 [id number] ####[facility] [address] [place] [address] BUN/Creatinine Ratio 21 mg/mg Normal 5-25 [facility] Comment on above: Performed By: #### 1 145681 ####[facility] [address] [place] [address] Calcium 9.2 mg/dL Normal 8.6-10.3 [facility] Comment on above: Performed By: #### 1 714613 ####[facility] [address] [place] [address] Chloride 104 mmol/L Normal 98-107 [facility] Comment on above: Performed By: #### 1 [id number] ####[facility] [address] [place] [address] Creatinine 0.94 mg/dL Normal 0.50-1.30 [facility] Comment on above: Performed By: #### 1 [id number] ####[facility] [address] [place] [address] eGFR (MDRD) mL/min/{1.73_m2} Normal [facility] Comment on above: Result Comment: Inte rpretation for Chronic Kidney Disease:Stages 1&2 >60 Healthy or potential kidney damage.Mild decrease of GFR.Stage 3 30-59 Moderate decrease of GFR.Stage 4 15-29 Severe decrease of GFR.Stage 5 <15 Kidney failure or on dialysis. Performed By: #### 1 [id number] ####[facility] [address] [place] [address] Glucose mass conc 108 mg/dL High 70-100 [facility] Comment on above: Performed By: #### 1 [id number] ####[facility] [address] [facility] [place] [address] Potassium molar conc 3.7 mmol/L Normal 3.5-5.[address] [facility] Healthcare Comment on above: Performed By: #### 1 [id number] ####[facility] [address] [place] [address] Sodium 139 mmol/L Normal 136-[address] [facility] Healthcare Comment on above: Performed By: #### 1 [id number] ####[facility] [address] [facility] [place] [address] Urea nitrogen 20 mg/dL Normal 6-23 [facility] Comment on above: Performed By: #### 1 [id number] ####[facility] [address] [facility] [place] [address] CBCon 03-12-2018 Erythrocyte distribution width Auto Ratio (RBC) 13.5 % Normal 12.0-15.[address] [facility] Healthcare Comment on above: Performed By: #### 2 [id number] ####[facility] [address] [facility] [place] [address] Erythrocytes (RBC) 0.00 10*3/uL Normal [facility] Healthcare Comment on above: Performed By: #### 2 [id number] ####[facility] [address] [facility] [place] [address] Erythrocytes (RBC) 4.80 10*6/uL Normal 4.08-6.37 [facility] Comment on above: Performed By: #### 2 [id number] ####[facility] [address] [place] [address] Erythrocytes (RBC) 0.0 /100{WBCs} Normal [facility] Comment on above: Performed By: #### 2 870782 ####[facility] [address] [place] [address] Hematocrit (HCT) 41.9 % Normal 38.4-54.9 [facility] thcare Comment on above: Performed By: #### 2 [id number] ####[facility] [address] [facility] [place] [address] Hemoglobin mass conc (Bld) 13.9 g/dL Normal 12.8-17.7 [facility] Comment on above: Performed By: #### 2 952499 ####[facility] [address] [facility] [place] [address] MCH 29.0 pg Normal 27.5-32.9 [facility] Comment on above: Performed By: #### 2 943562 ####[facility] [address] [facility] [place] [address] MCHC mass conc (RBC) 33.2 g/dL Normal 30.5-35.4 [facility] Comment on above: Performed By: #### 2 566161 ####[facility] [address] [place] [address] MCV 87.3 fL Normal 83.3-98.2 [facility] Comment on above: Performed By: #### 2 [id number] ####[facility] [address] [place] [address] Platelet mean volume (PMV) 11.0 fL Normal 9.9-12.1 [facility] Comment on above: Performed By: #### 2 105172 ####[facility] [address] [place] [address] Platelets 164 10*3/uL Normal 155-[address] [facility] Comment on above: Performed By: #### 2 [id number] ####[facility] [address] [facility] [place] [address] RDW SD 42.5 fL Normal 39.3-48.6 [facility] Comment on above: Performed By: #### 2 919005 ####[facility] [address] [place] [address] WBC (Leukocytes) 4.5 10*3/uL Normal 4.2-11.0 [facility] Comment on above: Performed By: #### 2 [id number] ####[facility] [address] [place] [address] Glucose, WB POCon 03-12-2018 Glucose mass conc 161 mg/dL High 70-100 [facility] Comment on above: Performed By: #### 1 [id number] ####[facility] [address] [place] [address] Glucose mass conc 109 mg/dL High 70-100 [facility] Comment on above: Performed By: #### 1 [id number] ####[facility] [address] [place] [facility] [place] [address] Vital Signs Date Time Vital Sign Value Performing Clinician Facility 06-04-2024 10:57-0400 Blood Pressure Location [facility]o [facility] 06-04-2024 10:57-0400 Diastolic blood pressure 64 mm[Hg] Chucho Fotomoto [facility] 06-04-2024 10:57-0400 Heart rate 64 /min Chucho Fotomoto [facility] 06-04-2024 10:57-0400 Respiratory rate 16 /min Chucho Fotomoto [facility] 06-04-2024 10:57-0400 Systolic blood pressure 128 mm[Hg] Chucho Fotomoto [facility] 04-19-2024 10:45-0400 Body height 165.1 cm Natan Ho MD Work Phone: [facility] 04-19-2024 10:45-0400 Body mass index (BMI) [Ratio] 29.45 kg/m2 Natan Ho MD Work Phone: [facility] 04-19-2024 10:45-0400 Body weight 80.29 kg Natan Ho MD Work Phone: [facility] 04-19-2024 10:45-0400 Diastolic blood pressure 82 mm[Hg] Natan Ho MD Work Phone: [facility] 04-19-2024 10:45-0400 Heart rate 58 /min Natan Ho MD Work Phone: [facility] 04-19-2024 10:45-0400 Systolic blood pressure 138 mm[Hg] Natan Ho MD Work Phone: [facility] 12-04-2023 10:56-0500 Blood Pressure Location [facility] 12-04-2023 10:56-0500 Diastolic blood pressure 84 mm[Hg] Chucho COOK [facility] 12-04-2023 10:56-0500 Systolic blood pressure 128 mm[Hg] Chucho COOK [facility] 05-17-2022 09:55-0400 Blood Pressure Location Chucho COOK [facility] Jen 05-17-2022 09:55-0400 Diastolic blood pressure 86 mm[Hg] Chucho COOK [facility] 05-17-2022 09:55-0400 Heart rate 58 /min Chucho COOK [facility] 05-17-2022 09:55-0400 Systolic blood pressure 149 mm[Hg] Chucho COOK [facility] Encounters Encounter Date Encounter Type Care Provider Facility Start: 03-11-2025 ambulatory [facility]o [facility] Facility :[facility] Start: 06-04-2024 End: 06-04-2024 ambulatory Chucho [facility] Facility:[facility] Start: 06-04-2024 End: 06-04-2024 Patient encounter procedure [facility]o [facility] Start: 06-04-2024 End: 06-04-2024 ambulatory KENNY ONEIL Not Available Start: 05-27-2024 End: 05-27-2024 ambulatory CHUCHO SOUTH Not Available Start: 04-19-2024 End: 04-19-2024 ambulatory NATAN HO [facility] Ambulatory Start: 04-19-2024 End: 04-19-2024 Office outpatient visit 25 minutes Natan Ho MD Work Phone: [facility] Comment on above: CAD S/P percutaneous coronary angioplasty; Primary hypertension; Mixed hyperlipidemia; Overweight with body mass index (BMI) 25.0-29.9; Type 2 diabetes mellitus with diabetic peripheral angiopathy without gangrene, without long-term current use of insulin (Multi); Chronic venous insufficiency; Never smoked tobacco Start: 02-26-2024 End: 02-26-2024 ambulatory TARIQ MCCRACKEN Not Available Start: 12-05-2023 End: 12-05-2023 ambulatory KENNY ONEIL Not Available Start: 12-04-2023 End: 12-04-2023 ambulatory Chucho SOUTH Facility:[facility] Start: 12-04-2023 End: 12-04-2023 Patient encounter procedure [facility]o [facility] Start: 05-17-2022 End: 05-17-2022 Patient encounter procedure [facility] Jen Start: 05-10-2022 End: 05-11-[address] NATAN VALLADARES Facility: Start: 03-12-2018 End: 03-13-2018 Ambulatory NATAN HARTMAN Facility:[facility] Procedures Date Procedure Procedure Detail Performing Clinician Start: 05-10-[address] TALISHA VALLADARES Comment on above: Performed By: #### P SAD #### [facility] [address] [place] [address] Dr. Erick Stevens Start: 07-20-2017 Cystoscopy Chucho MORGAN Start: 06-30-2017 Cystoscopy Chucho MORGAN Start: 09-08-2014 cystoscopy, left ure teral stent removal, left ureteroscopy with Holmium laser ablataion, ureteroscopic stone basket extraction, left JJ stent replacement after RGP, all under fluoroscopy Chucho [facility] Start: 08-28-2014 cystoscopy, left ret rograde pyelogram, left ureteroscopy, left JJ stent placement [facility]o [facility] Coronary angioplasty 1 Jim salome Fotomoto Comment on above: x7 total 1995 and 20 07 Placement of stent i n coronary artery [facility] Comment on above: 6 IN 1995, 1 IN 2006 FOR TOTAL OF 7 Plan of Treatment Date Care Activity Detail Author Start: 04-18-2025 End: 04-18-2025 Patient encounter procedure 04/18/2025 10:45 AM EDT Office Visit [facility] [address] [id number] Natan Ho MD [address] [facility] [address], [address] [id number] [facility] Start: 12-23-2023 COVID-19 Vaccine ( season) COVID-19 Vaccine ( season) [facility] Start: 08-16-2019 Pneumococcal Vaccine: 65+ Years (2 of 2 - PCV) Pneumococcal Vaccine: 65+ Years (2 of 2 - PCV) [facility] Start: 2010 RSV patients and/or patients aged 60+ years (1 - 1-dose 60+ series) RSV patients and/or patients aged 60+ years (1 - 1-dose 60+ series) [facility] Start: 1972 DTaP/Tdap/Td Vaccines (1 - Tdap) DTaP/Tdap/Td Vaccines (1 - Tdap) [facility] Start: 1968 Hepatitis C screening Hepatitis C Screening [facility] Start: 1950 Lipid panel Lipid Panel [facility] Start: 1950 Medicare Annual Wellness Visit Medicare Annual Wellness Visit (AWV) [facility] Start: 1950 Screening for malignant neoplasm of colon [facility] Immunizations Immunization Date Immunization Notes Care Provider Fa cili 08-21-2023 influenza virus vacc ine, unspecified formulation Ch[facility]o [facility] 01-23-2023 zoster vaccine recombinant [facility] 11-14-2022 zoster vaccine recombinant [facility] 09-17-2022 SARS-CoV-2 (COVID-19 ) [id number] [facility] 08-01-2022 influenza virus vacc ine, unspecified formulation [facility] 03-04-2022 Pfizer Purple Cap SARS-CoV-2 Natan Ho MD Work Phone: [facility] Work Phone: 03-04-2022 SARS-CoV-2 mRNA (nnhbcwyimzj-yyth-vnrhum e) vaccine [facility] 08-20-2021 SARS-CoV-2 (COVID-19 ) mRNA BNT-162b2 vax [facility] 08-15-2021 influenza virus vacc ine, unspecified formulation Natan Ho MD Work Phone: [facility] Work Phone: 08-15-2021 influenza, unspecifi ed formulation [employer] [facility] 01-05-2021 Pfizer Purple Cap SARS-CoV-2 Natan Ho MD Work Phone: [facility] 01-05-2021 SARS-CoV-2 (COVID-19 ) mRNA-1273 vaccine [employer] [facility] 12-14-2020 Pfizer Purple Cap SARS-CoV-2 Natan Ho MD Work Phone: [facility] 12-14-2020 SARS-CoV-2 (COVID-19 ) mRNA-1273 vaccine [employer] [facility] 08-06-2020 influenza virus vacc ine, unspecified formulation [employer] [facility] 09-06-2019 influenza virus vacc ine, unspecified formulation [employer] [facility] 08-19-2019 influenza virus vacc ine, unspecified formulation [employer] [facility] 08-16-2018 influenza virus vacc ine, live, attenuated, for intranasal use [employer] [facility] 08-16-2018 pneumococcal polysaccharide vaccine, 23 valent [employer] [facility] 08-07-2017 influenza virus vacc ine, unspecified formulation [facility] 08-31-2016 influenza virus vacc ine, unspecified formulation [facility] 08-21-2015 influenza virus vacc ine, unspecified formulation [facility] Payers Date Payer Category Payer Medicare HU[employer]NA MEDICARE [employer] GOLD CHOICE [id number] 2022-Present [address] [address] [place] [address] [id number] 1959 Medicare [id number] 1950 Unknown [id number] 1950 Unknown [id number] 1950 Unknown [id number] 1950 Unknown [id number] 1950 Unknown [id number] 9 1950 Unknown [id number] 9 1950 Unknown [id number] 9 1950 Unknown [id number] 9 1950 Unknown [id number] 9 1950 Unknown [id number] 9 1950 Unknown [id number] 4 Medicare [id number] Social History Date Type Detail Facility Start: 05-17-2022 End: 06-04-2024 Tobacco smoking status Never smoked tobacco (finding) [facility] Tobacco smoking status Never [facility] 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 Sex Assigned At Male [facility] Start: 04-19-2024 Tobacco use and exposure Smokeless tobacco non-user [facility] Work Phone: Start: 04-19-2024 Alcoholic beverage intake Lifetime non-drinker (finding) [facility] Work Phone: Start: 1950 Sex assigned at Not on file [facility] Work Phone: Start: 04-09-2024 End: 04-19-2024 Exposure to SARS-CoV-2 (event) Not sure [facility] Medical Equipment Procedure Code Equipment Code Equipment Origin al Text Equipment Identifier Dates Accu-Chek Softcl ix Lancets Start: 06-04-2024 Functional Status Date Assessment Result Facility 06-04-2024 Functional Status N/A [facility] 12-04-2023 Functional Status N/A [facility] 05-17-2022 Functional Status N/A [facility] Clinical Notes 05-17-2022 to 06-04-2024 Natan Ho MD - 04/19/2024 10:30 AM EDTPatient Instructions Note Date & Type Note Facility 06-04-2024 Hospital Discharge instructions Patient Education 06/04/2024 11:13:15 Benign Prostatic Hyperplasia Benign Prostatic Hyperplasia Benign prostatic hyperplasia (BPH) is an enlarged prostate gland that is caused by the normal aging process. The prostate may get bigger as a man gets older. The condition is not caused by cancer. The prostate is a walnut-sized gland that is involved in the production of semen. It is located in front of the rectum and below the bladder. The bladder stores urine. The urethra carries stored urine out of the body. An enlarged prostate can press on the urethra. This can make it harder to pass urine. The buildup of urine in the bladder can cause infection. Back pressure and infection may progress to bladder damage and kidney (renal) failure. What are the causes? This condition is part of the normal aging process. However, not all men develop problems from this condition. If the prostate enlarges away from the urethra, urine flow will not be blocked. If it enlarges toward the urethra and compresses it, there will be problems passing urine. What increases the risk? This condition is more likely to develop in men older than 50 years. What are the signs or symptoms? Symptoms of this condition include: Getting up often during the night to urinate. Needing to urinate frequently during the day. Difficulty starting urine flow. Decrease in size and strength of your urine stream. Leaking (dribbling) after urinating. Inability to pass urine. This needs immediate treatment. Inability to completely empty your bladder. Pain when you pass urine. This is more common if there is also an infection. Urinary tract infection (UTI). How is this diagnosed? This condition is diagnosed based on your medical history, a physical exam, and your symptoms. Tests will also be done, such as: A post-void bladder scan. This measures any amount of urine that may remain in your bladder after you finish urinating. A digital rectal exam. In a rectal exam, your health care provider checks your prostate by putting a lubricated, gloved finger into your rectum to feel the back of your prostate gland. This exam detects the size of your gland and any abnormal lumps or growths. An exam of your urine (urinalysis). A prostate specific antigen (PSA) screening. This is a blood test used to screen for prostate cancer. An ultrasound. This test uses sound waves to electronically produce a picture of your prostate gland. Your health care provider may refer you to a specialist in kidney and prostate diseases (urologist). How is this treated? Once symptoms begin, your health care provider will monitor your condition (active surveillance or watchful waiting). Treatment for this condition will depend on the severity of your condition. Treatment may include: Observation and yearly exams. This may be the only treatment needed if your condition and symptoms are mild. Medicines to relieve your symptoms, including: ?Medicines to shrink the prostate. ?Medicines to relax the muscle of the prostate. Surgery in severe cases. Surgery may include: ?Prostatectomy. In this procedure, the prostate tissue is removed completely through an open incision or with a laparoscope or robotics. ?Transurethral resection of the prostate (TURP). In this procedure, a tool is inserted through the opening at the tip of the penis (urethra). It is used to cut away tissue of the inner core of the prostate. The pieces are removed through the same opening of the penis. This removes the blockage. ?Transurethral incision (TUIP). In this procedure, small cuts are made in the prostate. This lessens the prostate's pressure on the urethra. ?Transurethral microwave thermotherapy (TUMT). This procedure uses microwaves to create heat. The heat destroys and removes a small amount of prostate tissue. ?Transurethral needle ablation (TUNA). This procedure uses radio frequencies to destroy and remove a small amount of prostate tissue. ?Interstitial laser coagulation (ILC). This procedure uses a laser to destroy and remove a small amount of prostate tissue. ?Transurethral electrovaporization (TUVP). This procedure uses electrodes to destroy and remove a small amount of prostate tissue. ?Prostatic urethral lift. This procedure inserts an implant to push the lobes of the prostate away from the urethra. Follow these instructions at home: Take agsx-wac-ejfufhk and prescription medicines only as told by your health care provider. Monitor your symptoms for any changes. Contact your health care provider with any changes. Avoid drinking large amounts of liquid before going to bed or out in public. Avoid or reduce how much caffeine or alcohol you drink. Give yourself time when you urinate. Keep all follow-up visits. This is important. Contact a health care provider if: You have unexplained back pain. Your symptoms do not get better with treatment. You develop side effects from the medicine you are taking. Your urine becomes very dark or has a bad smell. Your lower abdomen becomes distended and you have trouble passing urine. Get help right away if: You have a fever or chills. You suddenly cannot urinate. You feel light-headed or very dizzy, or you faint. There are large amounts of blood or clots in your urine. Your urinary problems become hard to manage. You develop moderate to severe low back or flank pain. The flank is the side of your body between the ribs and the hip. These symptoms may be an emergency. Get help right away. Call 911. Do not wait to see if the symptoms will go away. Do not drive yourself to the hospital. Summary Benign prostatic hyperplasia (BPH) is an enlarged prostate that is caused by the normal aging process. It is not caused by cancer. An enlarged prostate can press on the urethra. This can make it hard to pass urine. This condition is more likely to develop in men older than 50 years. Get help right away if you suddenly cannot urinate. This information is not intended to replace advice given to you by your health care provider. Make sure you discuss any questions you have with your health care provider. Document Revised: 05/11/2022 Document Reviewed: 05/11/2022 [employer] Patient Education 2022 [employer]. Follow Up Care 12/04/2023 11:33:58 With:BRANNON DAVIS, Chucho Goode, URL Address: [facility] [employer] [place] [id number]- When: Unknown Comments:9 mos PSA [facility] Jen 06-04-2024 Note Patient Education Urology Benign Prostatic Hyperplasia Benign prostatic hyperplasia (BPH) is an enlarged prostate gland that is caused by the normal aging process. The prostate may get bigger as a man gets older. The condition is not caused by cancer. The prostate is a walnut-sized gland that is involved in the production of semen. It is located in front of the rectum and below the bladder. The bladder stores urine. The urethra carries stored urine out of the body. An enlarged prostate can press on the urethra. This can make it harder to pass urine. The buildup of urine in the bladder can cause infection. Back pressure and infection may progress to bladder damage and kidney (renal) failure. What are the causes? This condition is part of the normal aging process. However, not all men develop problems from this condition. If the prostate enlarges away from the urethra, urine flow will not be blocked. If it enlarges toward the urethra and compresses it, there will be problems passing urine. What increases the risk? This condition is more likely to develop in men older than 50 years. What are the signs or symptoms? Symptoms of this condition include: ? Getting up often during the night to urinate. ? Needing to urinate frequently during the day. ? Difficulty starting urine flow. ? Decrease in size and strength of your urine stream. ? Leaking (dribbling) after urinating. ? Inability to pass urine. This needs immediate treatment. ? Inability to completely empty your bladder. ? Pain when you pass urine. This is more common if there is also an infection. ? Urinary tract infection (UTI). How is this diagnosed? This condition is diagnosed based on your medical history, a physical exam, and your symptoms. Tests will also be done, such as: ? A post-void bladder scan. This measures any amount of urine that may remain in your bladder after you finish urinating. ? A digital rectal exam. In a rectal exam, your health care provider checks your prostate by putting a lubricated, gloved finger into your rectum to feel the back of your prostate gland. This exam detects the size of your gland and any abnormal lumps or growths. ? An exam of your urine (urinalysis). ? A prostate specific antigen (PSA) screening. This is a blood test used to screen for prostate cancer. ? An ultrasound. This test uses sound waves to electronically produce a picture of your prostate gland. Your health care provider may refer you to a specialist in kidney and prostate diseases (urologist). How is this treated? Once symptoms begin, your health care provider will monitor your condition (active surveillance or watchful waiting). Treatment for this condition will depend on the severity of your condition. Treatment may include: ? Observation and yearly exams. This may be the only treatment needed if your condition and symptoms are mild. ? Medicines to relieve your symptoms, including: ? Medicines to shrink the prostate. ? Medicines to relax the muscle of the prostate. ? Surgery in severe cases. Surgery may include: ? Prostatectomy. In this procedure, the prostate tissue is removed completely through an open incision or with a laparoscope or robotics. ? Transurethral resection of the prostate (TURP). In this procedure, a tool is inserted through the opening at the tip of the penis (urethra). It is used to cut away tissue of the inner core of the prostate. The pieces are removed through the same opening of the penis. This removes the blockage. ? Transurethral incision (TUIP). In this procedure, small cuts are made in the prostate. This lessens the prostate's pressure on the urethra. ? Transurethral microwave thermotherapy (TUMT). This procedure uses microwaves to create heat. The heat destroys and removes a small amount of prostate tissue. ? Transurethral needle ablation (TUNA). This procedure uses radio frequencies to destroy and remove a small amount of prostate tissue. ? Interstitial laser coagulation (ILC). This procedure uses a laser to destroy and remove a small amount of prostate tissue. ? Transurethral electrovaporization (TUVP). This procedure uses electrodes to destroy and remove a small amount of prostate tissue. ? Prostatic urethral lift. This procedure inserts an implant to push the lobes of the prostate away from the urethra. Follow these instructions at home: ? Take ykdh-tdl-kumauki and prescription medicines only as told by your health care provider. ? Monitor your symptoms for any changes. Contact your health care provider with any changes. ? Avoid drinking large amounts of liquid before going to bed or out in public. ? Avoid or reduce how much caffeine or alcohol you drink. ? Give yourself time when you urinate. ? Keep all follow-up visits. This is important. Contact a health care provider if: ? You have unexplained back pain. ? Your symptoms do not get better with treatment. ? You develop side effec (more content not included)... [facility] 04-19-2024 History of Present illness Narrative CARDIOLOGY OFFICE VISIT CHIEF COMPLAINT HISTORY OF PRESENT ILLNESS The patient states that he has been doing well. He states that he had an echocardiogram done since I saw him last. This apparently showed some abnormality. I presume he was found to have some decrease in his left ventricular systolic function. He states he was placed on Farxiga initially. He states he had to discontinue this because he had yeast infection. He then was placed on Entresto which he is [place] with any problems. He was having some swelling of his lower extremities bilaterally. His symptoms get worse as the day goes on the more he is on his feet and are improved in the morning. He was placed on spironolactone which has helped the swelling of his lower extremities. He denies chest discomfort or symptoms of myocardial ischemia. He denies dyspnea. He denies palpitations and syncope. I told him medical records department will try to get a copy have his echocardiogram for his chart. IMPRESSION: 1. Coronary artery disease, no angina. 2. Multivessel PCI, most recently drug-eluting stents of left anterior descending coronary and right coronary artery, March 12, 2018. 3. Mixed hyperlipidemia. 4. Diabetes mellitus type 2. 5. Overweight 6. Chronic Venous Insufficiency bilaterally Please excuse any errors in grammar or translation related to this dictation. Voice recognition software was utilized to prepare this document. Past Medical History Social History Social History Tobacco Use Smoking status: Never Smokeless tobacco: Never Substance Use Topics Alcohol use: Never Drug use: Never Family History Family History Problem Relation Name Age of Onset Other (acute myocardial infarction) Mother Coronary artery disease Mother Other (cardiac pacemaker) Father Other (cardiac pacemaker) Brother Allergies: Allergies Allergen Reactions Beta-Blockers (Beta-Adrenergic Blocking Agts) Unknown Beta Adrenergic Blockers: BRADYCARDIA Farxiga [Dapagliflozin Propanediol] Other Yeast infection Pravastatin Unknown Outpatient Medications: Current Outpatient Medications Medication Instructions aspirin 81 mg, oral, Daily atorvastatin (LIPITOR) 40 mg, oral, Daily clopidogrel (PLAVIX) 75 mg, oral, Daily cyanocobalamin (VITAMIN B-12) 500 mcg, oral, Daily fish oil concentrate (Safford-3) 120-180 mg capsule 2 g, oral, (1000 MG capsule) fluticasone (Flonase Allergy Relief) 50 mcg/actuation nasal spray nasal, As directed garlic 1,000 mg capsule oral, Take as directed metFORMIN (GLUCOPHAGE) 1,000 mg, oral, 2 times daily montelukast (SINGULAIR) 10 mg, oral, Daily nitroglycerin (NITROSTAT) 0.4 mg, sublingual, Every 5 min PRN sacubitriL-valsartan (Entresto) 97-103 mg tablet 1 tablet, oral, 2 times daily spironolactone (ALDACTONE) 25 mg, oral, Daily REVIEW OF SYSTEMS Review of Systems Cardiovascular: Positive for leg swelling. All other systems reviewed and are negative. VITALS Vitals: 04/19/24 1045 BP: 138/82 Pulse: 58 PHYSICAL EXAM Edema: Pretibial: bilateral 1+ edema of the pretibial area. Ankle: bilateral 1+ edema of the ankle. Feet: bilateral 1+ edema of the feet. ASSESSMENT AND PLAN Diagnoses and all orders for this visit: CAD S/P percutaneous coronary angioplasty Primary hypertension Mixed hyperlipidemia Overweight with body mass index (BMI) 25.0-29.9 Type 2 diabetes mellitus with diabetic peripheral angiopathy without gangrene, without long-term current use of insulin (Multi) Chronic venous insufficiency Never smoked tobacco @ASSESSMENTANDPLANTEXT@ documented in this encounter [facility] Work Phone: 04-19-2024 Instructions Edmundo Bills RN - 04/19/2024 10:30 AM EDT Patient to follow up in [address] Natan Hartman MD Office will work on getting records from [facility] No other changes today. Continue same medications and treatments. Patient educated on proper medication use. Patient educated on risk factor modification. Please bring any lab results from other providers / physicians to your next appointment. Please bring all medicines, vitamins, and herbal supplements with you when you come to the office. Prescriptions will not be filled unless you are compliant with your follow up appointments or have a follow up appointment scheduled as per instruction of your physician. Refills should be requested at the time of your visit. I, Edmundo Bills RN am scribing for and in the presence of Dr. Natan Ho MD documented in this encounter [facility] Work Phone: 12-04-2023 Hospital Discharge instructions Patient Education 12/04/2023 11:31:42 Dietary Guidelines to Help Prevent Kidney Stones Dietary Guidelines to Help Prevent Kidney Stones Kidney stones are deposits of minerals and salts that form inside your kidneys. Your risk of developing kidney stones may be greater depending on your diet, your lifestyle, the medicines you take, and whether you have certain medical conditions. Most people can lower their risks of developing kidney stones by following these dietary guidelines. Your dietitian may give you more specific instructions depending on your overall health and the type of kidney stones you tend to develop. What are tips for following this plan? Reading food labels Choose foods with no salt added or low-salt labels. Limit your salt (sodium) intake to less than 1,500 mg a day. Choose foods with calcium for each meal and snack. Try to eat about 300 mg of calcium at each meal. Foods that contain 200 500 mg of calcium a serving include: ?8 oz (237 mL) of milk, egajpmu-soumezoqtfbs-hdjbt milk, and calcium-fortifiedfruit juice. Calcium-fortified means that calcium has been added to these drinks. ?8 oz (237 mL) of kefir, yogurt, and soy yogurt. ?4 oz (114 g) of tofu. ?1 oz (28 g) of cheese. ?1 cup (150 g) of dried figs. ?1 cup (91 g) of cooked broccoli. ?One 3 oz (85 g) can of sardines or mackerel. Most people need 1,000 1,500 mg of calcium a day. Talk to your dietitian about how much calcium is recommended for you. Shopping Buy plenty of fresh fruits and vegetables. Most people do not need to avoid fruits and vegetables, even if these foods contain nutrients that may contribute to kidney stones. When shopping for convenience foods, choose: ?Whole pieces of fruit. ?Pre-made salads with dressing on the side. ?Low-fat fruit and yogurt smoothies. Avoid buying frozen meals or prepared deli foods. These can be high in sodium. Look for foods with live cultures, such as yogurt and kefir. Choose high-fiber grains, such as whole-wheat breads, oat bran, and wheat cereals. Cooking Do not add salt to food when cooking. Place a salt shaker on the table and allow each person to add their own salt to taste. Use vegetable protein, such as beans, textured vegetable protein (TVP), or tofu, instead of meat in pasta, casseroles, and soups. Meal planning Eat less salt, if told by your dietitian. To do this: ?Avoid eating processed or pre-made food. ?Avoid eating fast food. Eat less animal protein, including cheese, meat, poultry, or fish, if told by your dietitian. To do this: ?Limit the number of times you have meat, poultry, fish, or cheese each week. Eat a diet free of meat at least 2 days a week. ?Eat only one serving each day of meat, poultry, fish, or seafood. ?When you prepare animal proteins, cut pieces into small portion sizes. For most meat and fish, one serving is about the size of the palm of your hand. Eat at least five servings of fresh fruits and vegetables each day. To do this: ?Keep fruits and vegetables on hand for snacks. ?Eat one piece of fruit or a handful of berries with breakfast. ?Have a salad and fruit at lunch. ?Have two kinds of vegetables at dinner. You may be told to limit foods that are high in a substance called oxalate. These include: ?Spinach (cooked), rhubarb, beets, sweet potatoes, and [place] chard. ?Peanuts. ?Potato chips, tamazight fries, and baked potatoes with skin on. ?Nuts and nut products. ?Chocolate. If you regularly take a diuretic medicine, make sure to eat at least 1 or 2 servings of fruits or vegetables that are high in potassium each day. These include: ?Avocado. ?Banana. ?[place], prune, carrot, or tomato juice. ?Baked potato. ?Cabbage. ?Beans and split peas. Lifestyle Drink enough fluid to keep your urine pale yellow. This is the most important thing you can do. Spread your fluid intake throughout the day. If you drink alcohol: ?Limit how much you have to: ?0 1 drink a day for women who are not . ?0 2 drinks a day for men. ?Know how much alcohol is in your drink. In the [place] one drink equals one 12 oz bottle of beer (355 mL), one 5 oz glass of wine (148 mL), or one 1 oz glass of hard liquor (44 mL). Lose weight if told by your health care provider. Work with your dietitian to find an eating plan and weight loss strategies that work best for you. General information Talk to your health care provider and dietitian about taking daily supplements. Depending on your health and the cause of your kidney stones, you may be told: ?Do not take high-dose supplements of vitamin C (1,000 mg a day or more). ?To take a calcium supplement. ?To take a daily probiotic supplement. ?To take other supplements such as magnesium, fish oil, or vitamin B6. Take oyug-yoh-spuhcfh and prescription medicines only as told by your health care provider. These include supplements. What foods should I limit? Limit your intake of the following foods, or eat them as told by your dietitian. Vegetables Spinach. Rhubarb. Beets. Canned vegetables. Pickles. Olives. Baked potatoes with skin. Grains Wheat bran. Baked goods. Salted crackers. Cereals high in sugar. Meats and other proteins Nuts. Nut butters. Large portions of meat, poultry, or fish. Salted, precooked, or cured meats, such as sausages, meat loaves, and hot dogs. Dairy Cheeses. Beverages Regular soft drinks. Regular vegetable juice. Seasonings and condiments Seasoning blends with salt. Salad dressings. Soy sauce. Ketchup. Barbecue sauce. Other foods Canned soups. Canned pasta sauce. Casseroles. Pizza. Lasagna. Frozen meals. Potato chips. Portuguese fries. The items listed above may not be a complete list of foods and beverages you should limit. Contact a dietitian for more information. What foods should I avoid? Talk to your dietitian about specific foods you should avoid based on the type of kidney stones you have and your overall health. Fruits Grapefruit. The item listed above may not be a complete list of foods and beverages you should avoid. Contact a dietitian for more information. Summary Kidney stones are deposits of minerals and salts that form inside your kidneys. You can lower your risk of kidney stones by making changes to your diet. The most important thing you can do is drink enough fluid. Drink enough fluid to keep your urine pale yellow. Talk to your dietitian about how much calcium you should have each day, and eat less salt and animal protein as told by your dietitian. This information is not intended to replace advice given to you by your health care provider. Make sure you discuss any questions you have with your health care provider. Document Revised: 02/02/2023 Document Reviewed: 02/02/2023 [employer] Patient Education 2022 [employer]. Follow Up Care 05/30/2023 10:54:58 With:BRANNON DAVIS, Chucho Goode, URL Address: [address] [place], [place] [id number]- When:Within 6 Month(s) Comments:w/ALFIE and MILLER [facility] Jen 05-17-2022 Hospital Discharge instructions Patient Education 05/17/2022 10:10:34 Kidney Stones, Fhxs-br-Ekag Kidney Stones Kidney stones are rock-like masses that form inside of the kidneys. Kidneys are organs that make pee (urine). A kidney stone may move into other parts of the urinary tract, including: The tubes that connect the kidneys to the bladder (ureters). The bladder. The tube that carries urine out of the body (urethra). Kidney stones can cause very bad pain and can block the flow of pee. The stone usually leaves your body (passes) through your pee. You may need to have a doctor take out the stone. What are the causes? Kidney stones may be caused by: A condition in which certain glands make too much parathyroid hormone (primary hyperparathyroidism). A buildup of a type of crystals in the bladder made of a chemical called uric acid. The body makes uric acid when you eat certain foods. Narrowing (stricture) of one or both of the ureters. A kidney blockage that you were born with. Past surgery on the kidney or the ureters, such as gastric bypass surgery. What increases the risk? You are more likely to develop this condition if: You have had a kidney stone in the past. You have a family history of kidney stones. You do not drink enough water. You eat a diet that is high in protein, salt (sodium), or sugar. You are overweight or very overweight (obese). What are the signs or symptoms? Symptoms of a kidney stone may include: Pain in the side of the belly, right below the ribs (flank pain). Pain usually spreads (radiates) to the groin. Needing to pee often or right away (urgently). Pain when going pee (urinating). Blood in your pee (hematuria). Feeling like you may vomit (nauseous). Vomiting. Fever and chills. How is this treated? Treatment depends on the size, location, and makeup of the kidney stones. The stones will often pass out of the body through peeing. You may need to: Drink more fluid to help pass the stone. In some cases, you may be given fluids through an IV tube put into one of your veins at the hospital. Take medicine for pain. Make changes in your diet to help keep kidney stones from coming back. Sometimes, medical procedures are needed to remove a kidney stone. This may involve: A procedure to break up kidney stones using a beam of light (laser) or shock waves. Surgery to remove the kidney stones. Follow these instructions at home: Medicines Take ajoh-klr-cgtnahr and prescription medicines only as told by your doctor. Ask your doctor if the medicine prescribed to you requires you to avoid driving or using heavy machinery. Eating and drinking Drink enough fluid to keep your pee pale yellow. You may be told to drink at least 8 10 glasses of water each day. This will help you pass the stone. If told by your doctor, change your diet. This may include: ?Limiting how much salt you eat. ?Eating more fruits and vegetables. ?Limiting how much meat, poultry, fish, and eggs you eat. Follow instructions from your doctor about eating or drinking restrictions. General instructions Collect pee samples as told by your doctor. You may need to collect a pee sample: ?24 hours after a stone comes out. ?8 12 weeks after a stone comes out, and every 6 12 months after that. Strain your pee every time you pee (urinate), for as long as told. Use the strainer that your doctor recommends. Do not throw out the stone. Keep it so that it can be tested by your doctor. Keep all follow-up visits as told by your doctor. This is important. You may need follow-up tests. How is this prevented? To prevent another kidney stone: Drink enough fluid to keep your pee pale yellow. This is the best way to prevent kidney stones. Eat healthy foods. Avoid certain foods as told by your doctor. You may be told to eat less protein. Stay at a healthy weight. Where to find more information National Kidney Foundation (NKF): www.kidney.org U[employer] Care Foundation (UCF): www.urologyhealth.org Contact a doctor if: You have pain that gets worse or does not get better with medicine. Get help right away if: You have a fever or chills. You get very bad pain. You get new pain in your belly (abdomen). You pass out (faint). You cannot pee. Summary Kidney stones are rock-like masses that form inside of the kidneys. Kidney stones can cause very bad pain and can block the flow of pee. The stones will often pass out of the body through peeing. Drink enough fluid to keep your pee pale yellow. This information is not intended to replace advice given to you by your health care provider. Make sure you discuss any questions you have with your health care provider. Document Released: 04/10/2009 Document Revised: 03/10/2020 Document Reviewed: 03/10/2020 [employer] Patient Education 2020 [employer]. Follow Up Care 05/14/2021 10:50:29 With:Chucho SOUTH MD, URL Address: [address] [place], [place] [id number]- When:1 year Comments:PSA & KUB [facility] Evaluation + Plan note Future Appointments Appointment Date:05/26/2023 09:15:00 AM Scheduled Provider:Chucho SOUTH MD Location:[facility] Appointment Type:URO Office Visit Diagnostic Tests PendingPSA Total 05/17/22 [facility] Evaluation + Plan note Future Appointments Appointment Date:06/04/2024 10:45:00 AM Scheduled Provider:Chucho SOUTH MD Location:[facility] Appointment Type:URO Office Visit Diagnostic Tests PendingPSA Total 12/04/23 [facility] Evaluation + Plan note Future Appointments Appointment Date:03/11/2025 09:30:00 AM Scheduled Provider:Chucho SOUTH MD Location:[facility] Appointment Type:URO Office Visit Diagnostic Tests PendingPSA Total 7/30/24 [facility] Evaluation note Diagnosis CAD S/P percutaneous coronary angioplasty Primary hypertension Unspecified essential hypertension Mixed hyperlipidemia Overweight with body mass index (BMI) 25.0-29.9 Type 2 diabetes mellitus with diabetic peripheral angiopathy without gangrene, without long-term current use of insulin (Multi) Chronic venous insufficiency Unspecified venous (peripheral) insufficiency Never smoked tobacco documented in this encounter [facility] Work Phone: Hospital course Narrative No data available for this section [facility] Progress note No data available for this section [facility] Summary Purpose Family History No Family History Records FoundNo Family History Records FoundNo Family History Records FoundNo Family History Records Found No data available for this section No data available for this section No Family History Records FoundNo Family History Records FoundNo Family History Records Found Advance Directives No Advanced Directives Records FoundNo Advanced Directives Records FoundNo Advanced Directives Records FoundNo Advanced Directives Records FoundNo Advanced Directives Records FoundNo Advanced Directives Records FoundNo Advanced Directives Records Found Additional Source Comments (unrecognized sect ion and content) No Status Records FoundNo Status Records FoundNo Status Records FoundNo Status Records FoundNo Status Records FoundNo Status Records FoundNo Status Records Found INFORMATION SOURCE (unrecogn ized section and content) DATE CREATED AUTHOR 04/30/[address] [facility] Healthcare DATE CREATED AUTHOR AUTHOR'S ORGANIZ ATION 04/16/2022 [employer] DATE CREATED AUTHOR AUTHOR'S ORGANIZ ATION 05/10/2022 [facility] DATE CREATED AUTHOR AUTHOR'S ORGANIZ ATION 05/14/2022 [facility] DATE CREATED AUTHOR AUTHOR'S ORGANIZ ATION 06/06/2024 [facility] DATE CREATED AUTHOR AUTHOR'S ORGANIZ ATION 06/10/2024 [facility] EPIC DATE CREATED AUTHOR AUTHOR'S ORGANIZ ATION 08/01/2024 [facility] Specialist Team (unrecognized sect ion and content) Qm Nurse Relationship Specialty Start Date End Date Natan Valladares DO PCP - General 11/06/20 Natan Ho MD [address] [place] [address] [facility] 04/12/24 Reason for Visit (unrecogniz ed section and content) Reason Comments Follow-up 1 year FOR RECORDS PERTAINING TO PATIENTS WHO ARE OR HAVE BEEN ENROLLED IN A CHEMICAL DEPENDENCY/SUBSTANCEABUSE PROGRAM, SOME INFORMATION MAY BE OMITTED. This clinical summary was aggregated from multiple sources. Caution should be exercised in using it in the provision of clinical care. This summary normalizes information from multiple sources, and as a consequence, information in this document may materially change the coding, format and clinical context of patient data. In addition, data may be omitted in some cases. CLINICAL DECISIONS SHOULD BE BASED ON THE PRIMARY CLINICAL RECORDS. [employer] provides no warranty or guarantee of the accuracy or completeness of information in this document.
--- NOTE | 2024-10-25 14:13 | RT_ITS ---
[facility] Test Date: 2024-10-25 Pat Name: BOBBY LITTLE Department: Room: - Gender: Male Library Services Assistant: Shonda Odonnell RRT : 1950 Requested By: Kenneth Bagley Order Number: [id number] Reading MD: Kenneth Bagley Interpretive Statements Pulmonary function testing was completed according to ATS criteria. Findings were considered accurate and reproducible. No bronchodilator was administered due to normal spirometric values. Spirometry: -FEV1/FVC: Normal @ 76% -FEV1: Normal @ 109% -FVC: Normal @ 103% Lung volumes by plethysmography: -RV: Normal @ 112% -TLC: Normal @ 101% Diffusion capacity: -DLCO: Normal @ 105% when corrected for Hb 10.7g/dL Flow-volume loop: -Abnormal spike in the expiratory limb suggestive of a glottic maneuver (e.g. cough) Impressions: -Essentially normal PFT, though spirometry appears to be trending towards a mild obstruction. Clinical correlation required. Electronically Signed On 10-28-2024 7:54:56 EST by Kenneth Bagley
[2024-10-29 23:07] LABS: Immunoglobulin E, Total 12 IU/mL (6-495)
== END 2024-10-25 12:42 | disposition home or self-care (01) ==
LOC: LAB 12:42
PROVIDERS: PCP Internal Medicine; Visit Provider Internal Medicine
DX: R05.3 Chronic cough (principal)
CPT/HCPCS: 36415; 71250; 82785; 85025; 86615; 94010; 94726; 94729